=== PATIENT | male | born 1960 | race Two or more races ===

== ENCOUNTER 2022-09-01 10:02 | Emergency (ER) | payer MEDICAID, OTHER ==
[~2022-09-01] VITALS: Ht 170.2 cm; Wt 81.8 kg
[2022-09-01] MEDS ORDERED: cefTRIAXone SOD 1,000 MG VL IM ONE (11:30)
[2022-09-01] MEDS ORDERED: AZIT500T66 PO (11:49)
[2022-09-01] MEDS ORDERED: PROM1SOL4 PO (11:49)
[2022-09-01] MEDS ORDERED: ALBU108A5 IN (11:49)
[2022-09-01 12:02] VITALS: BP 124/75
== END 2022-09-01 12:05 | disposition home or self-care (01) ==
LOC: ER 10:02
DX: J02.9 Acute pharyngitis, unspecified (principal); J20.9 Acute bronchitis, unspecified
CPT/HCPCS: 71046; 96372; 99283; J0696

== ENCOUNTER 2023-06-04 08:03 | Inpatient (IN) | payer MEDICAID ==
[~2023-06-04] VITALS: Ht 167.6 cm; Wt 79.2 kg
[~2023-06-04 08:03] MED LIST: ALBU108A5 IN; AZIT500T66 PO; PROM1SOL4 PO
[2023-06-04 08:33] LABS: Basophils # (auto) 0.1 10 ^3/uL (0-0.2); Basophils % (auto) 0.7 % (0.0-2.0); Eosinophils # (auto) 0.2 10 ^3/uL (0-0.8); Eosinophils % (auto) 1.4 % (0.0-7.0); Hematocrit 47.1 % (41.0-53.0); Hemoglobin 15.6 g/dL (13.5-17.5); Lymphocytes # (auto) 2.6 10 ^3/uL (0.4-5.4); Lymphocytes % (auto) 23.2 % (10.0-50.0); Mean Corpuscular Hgb Conc. 33.2 g/dL (32.0-36.0); Mean Corpuscular Volume 90.4 fL (80.0-100.0); Monocytes # (auto) 1.4 10 ^3/uL (0-1.3); Monocytes % (auto) 12.4 % (0.0-12.0); Neutrophils # (auto) 6.9 10 ^3/uL (1.6-8.6); Neutrophils % (auto) 62.3 % (37.0-80.0); Nucleated Red Blood Cells % 0.1 %; Red Blood Cells 5.21 10^6/uL (4.5-5.90); White Blood Cell 11.1 10^3/uL (4.4-10.8)
[2023-06-04 08:44] LABS: INR 1.09 (0.9-1.15); Partial Thromboplastin Time 25.9 SEC (24.5-34.5); Prothrombin Time 11.4 sec (9.3-11.8)
[2023-06-04] MEDS ORDERED: FUROSEMIDE 40 MG/4 ML VIAL IV ONE (08:45)
[2023-06-04 08:50] LABS: Alanine Aminotransferase 15 U/L (7-40); Albumin 4.5 g/dL (3.2-4.8); Alkaline Phosphatase 114 U/L (46-116); Anion Gap 7 (5-15); Aspartate Aminotransferase 22 U/L (13-40); BUN/Creatinine Ratio 11.8 (10.0-20.0); Blood Urea Nitrogen 11 mg/dL (9-23); Calcium 9.8 mg/dL (8.5-10.1); Carbon Dioxide 27 mmol/L (20-30); Chloride 101 mmol/L (98-107); Glucose 88 mg/dL (74-106); Potassium 4.1 mmol/L (3.5-5.1); Sodium 135 mmol/L (136-145)
[2023-06-04 08:51] LABS: Bilirubin, Total 1.2 mg/dL (0.2-1.0); Total Protein 7.6 g/dL (5.7-8.2)
[2023-06-04 10:00] VITALS: PULSE 87; RESP 15; O2SAT 96
[2023-06-04] MEDS ORDERED: NITROGLYCERIN 0.4 MG SL TAB SL PRN (11:45)
[2023-06-04] MEDS ORDERED: MORPHINE SULFATE INJ 2 MG/ml SYRG IV PRN ×2 (11:45)
[2023-06-04 13:22] LABS: Urine Bacteria NONE SEEN /hpf (None Seen); Urine Blood Negative /uL (Negative); Urine Clarity Clear (Clear); Urine Color Colorless (Yellow); Urine Protein, UAD Negative (Negative); Urine Specific Gravity 1.004 (1.001-1.035); Urine Urobilinogen Normal (Negative); Urine WBC <1 /hpf (0 - 3)
[2023-06-04 14:27] LABS: COVID19 ANTIGEN SOFIA FIA NEGATIVE (NEGATIVE); Rapid Influenza A Negative (Negative); Rapid Influenza B Negative (Negative)
[2023-06-04 15:14] LABS: Body Fluid pH 3
[2023-06-04] MEDS: HYDROcodone-ACET 5/325MG TAB PO PRN (19:05)
[2023-06-04] MEDS: ONDANSETRON HCL 4 MG/2 ML VIAL IV PRN (20:39)
[2023-06-04 22:28] LABS: Body Fluid Red Blood Cells 645000 CUMM (0-2000); Body Fluid White Blood Cells 12500 CUMM (0-200)
[2023-06-04 22:29] LABS: Body Fluid Polymorphonuclear 16 % (0-25)
[2023-06-04 23:59] VITALS: PULSE 98; RESP 22; O2SAT 95
[2023-06-05] MEDS: ONDANSETRON HCL 4 MG/2 ML VIAL IV PRN (04:53)
[2023-06-05 08:24] VITALS: PULSE 94; RESP 16; O2SAT 100
[2023-06-05] MEDS: HYDROcodone-ACET 5/325MG TAB PO PRN (08:30)
[2023-06-05] MEDS ORDERED: FAMOTIDINE 20 MG TAB PO SCH (10:00)
[2023-06-05 12:07] LABS: Albumin, Body Fluid 3.5 g/dL (Not Estab.); Protein, Body Fluid 5.5 g/dL (.)
[2023-06-05 13:03] VITALS: TEMP 98.7
[2023-06-05] MEDS ORDERED: TAMS-35 PO (14:59)
[2023-06-05 15:40] VITALS: BP 116/82; PULSE 78; RESP 16; O2SAT 100
[2023-06-22] MEDS ORDERED: IBUP1TAB5 PO (14:42)
[2023-06-22] MEDS ORDERED: ROSU10TA16 PO (14:42)
== END 2023-06-05 15:50 | disposition home or self-care (01) | DRG 136 ==
LOC: ER 08:03 → TELE 11:51
PROVIDERS: ADMIT Hospitalist; ATTEND Hospitalist
PROC: 0W993ZZ Drainage of Right Pleural Cavity, Percutaneous Approach (ICD-10-PCS; principal; 2023-06-04)
DX: C34.90 Malignant neoplasm of unspecified part of unspecified bronchus or lung (principal); J90 Pleural effusion, not elsewhere classified; N13.8 Other obstructive and reflux uropathy; E78.5 Hyperlipidemia, unspecified; I10 Essential (primary) hypertension; N40.1 Benign prostatic hyperplasia with lower urinary tract symptoms; Z85.46 Personal history of malignant neoplasm of prostate
CPT/HCPCS: 36415; 71045; 71260; 76604; 76775; 76942; 80053; 81001; 83615; 83880; 83986; 84484; 85025; 85610; 85730; 87070; 87205; 87426; 87804; 89051; 93005; 93306; 96374; 99291; G0378; J2405

== ENCOUNTER 2023-07-05 20:45 | Inpatient (IN) | payer MEDICAID ==
[~2023-07-05] VITALS: Ht 170.2 cm; Wt 83.2 kg
[~2023-07-05 20:45] MED LIST changes: -AZIT500T66 PO; +ROSU10TA16 PO; +TAMS-35 PO
[2023-07-05 22:00] LABS: Basophils # (auto) 0.1 10 ^3/uL (0-0.2); Basophils % (auto) 0.6 % (0.0-2.0); Eosinophils # (auto) 0.1 10 ^3/uL (0-0.8); Hematocrit 39.2 % (41.0-53.0); Hemoglobin 13.1 g/dL (13.5-17.5); Lymphocytes % (auto) 11.7 % (10.0-50.0); Mean Corpuscular Hemoglobin 29.8 pg (28.0-32.0); Mean Corpuscular Hgb Conc. 33.5 g/dL (32.0-36.0); Mean Corpuscular Volume 88.9 fL (80.0-100.0); Monocytes # (auto) 1.1 10 ^3/uL (0-1.3); Monocytes % (auto) 12.3 % (0.0-12.0); Neutrophils # (auto) 6.6 10 ^3/uL (1.6-8.6); Neutrophils % (auto) 74.4 % (37.0-80.0); Red Cell Distribution Width 13.6 % (11.8-14.3); White Blood Cell 8.9 10^3/uL (4.4-10.8)
[2023-07-05 22:09] LABS: Alanine Aminotransferase 16 U/L (7-40); Alkaline Phosphatase 117 U/L (46-116); Anion Gap 8 (5-15); Aspartate Aminotransferase 14 U/L (13-40); BUN/Creatinine Ratio 9.1 (10.0-20.0); Blood Urea Nitrogen 8 mg/dL (9-23); Calcium 9.4 mg/dL (8.5-10.1); Carbon Dioxide 27 mmol/L (20-30); Chloride 100 mmol/L (98-107); Glucose 113 mg/dL (74-106); Potassium 4.1 mmol/L (3.5-5.1); Sodium 135 mmol/L (136-145)
[2023-07-05 22:10] LABS: Bilirubin, Total 0.5 mg/dL (0.2-1.0)
[2023-07-06 04:30] VITALS: PULSE 91; RESP 18; O2SAT 98
[2023-07-06 07:33] LABS: Urine Bacteria NONE SEEN /hpf (None Seen); Urine Blood Negative /uL (Negative); Urine Clarity Clear (Clear); Urine Color Yellow (Yellow); Urine Mucus FEW (None Seen); Urine Protein, UAD TRACE (Negative); Urine Specific Gravity 1.017 (1.001-1.035); Urine Urobilinogen Normal (Negative); Urine WBC 1 /hpf (0 - 3)
[2023-07-06 08:00] VITALS: PULSE 94; RESP 22; TEMP 98.2; O2SAT 93
[2023-07-06] MEDS ORDERED: MORPHINE SULFATE INJ 2 MG/ml SYRG IV PRN ×2 (09:15)
[2023-07-06] MEDS ORDERED: NITROGLYCERIN 0.4 MG SL TAB SL PRN (09:15)
[2023-07-06] MEDS ORDERED: ONDANSETRON HCL 4 MG/2 ML VIAL IV PRN (09:15)
[2023-07-06] MEDS ORDERED: HYDROcodone-ACET 5/325MG TAB PO PRN (09:15)
[2023-07-06] MEDS ORDERED: ALBUTEROL SULF 2.5 MG/0.5ML(0.5%) NEB SOLN NEB SCH (10:00)
[2023-07-06 10:17] LABS: INR 1.12 (0.9-1.15); Partial Thromboplastin Time 28.8 SEC (24.5-34.5); Prothrombin Time 11.7 sec (9.3-11.8)
[2023-07-06 11:03] VITALS: BP 108/65; PULSE 116; RESP 22; O2SAT 92
== END 2023-07-06 11:53 | disposition home or self-care (01) | DRG 136 ==
LOC: ER 20:45 → OVERFLOW 07-06 09:15
PROVIDERS: ADMIT Hospitalist; ATTEND Hospitalist
PROC: 0W9B3ZZ Drainage of Left Pleural Cavity, Percutaneous Approach (ICD-10-PCS; principal; 2023-07-06)
DX: C34.92 Malignant neoplasm of unspecified part of left bronchus or lung (principal); J96.20 Acute and chronic respiratory failure, unspecified whether with hypoxia or hypercapnia; J91.0 Malignant pleural effusion; Z82.49 Family history of ischemic heart disease and other diseases of the circulatory system; Z85.118 Personal history of other malignant neoplasm of bronchus and lung
CPT/HCPCS: 36415; 71045; 80053; 81001; 83880; 84484; 85025; 85610; 85730; 93005; G0378

== ENCOUNTER 2024-08-02 12:15 | Inpatient (IN) | payer MEDICAID ==
[~2024-08-02] VITALS: Ht 170.2 cm; Wt 63.8 kg
[~2024-08-02 12:15] MED LIST changes: +MORP30TA PO; +TAMS0.4C39 PO
--- NOTE | 2024-08-02 12:37 | ECG ---
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
--- NOTE | 2024-08-02 13:22 | ED.PDOC ---
GI ASSESSMENT HPI Comments 64y M who presents to the ED for chief complaint of abdominal pain. Pt states he has been having R sided abdominal pain for the past few days. Pt states the pain is constant, achy in nature, with pain radiating diffusely located, with no associated exacerbating or relieving factors.Pt states he also also been constipated for the past 3 weeks and last BM 3 weeks prior. Pt noted to be taking norco for pain. Pt otherwise able to pass gas at this time. Pt denies any other symptoms at this time. Chief Complaint: Abdominal Pain Time Seen by MD: 13:19 Primary Care Provider: LARRY Del Real Notes: Medications Allergies: Coded Allergies: NO KNOWN ALLERGIES (Unverified , 09/01/22) Home Meds Active Scripts Tamsulosin Hcl (Flomax) 0.4 Mg Cap, 1 CAP PO QPM, #30 CAP Prov:JALYN SARGENT MD 06/05/23 Albuterol Sulfate (Albuterol Sulfate Hfa) 108 Mcg/Act Aer, 108 MCG IN TID, #90 AER Prov:KENYA GARCES 09/01/22 Promethazine-Dm (Promethazine Dm 6.25-15 mg/5Ml) 1 Cyndi Cyndi, 5 ML PO TID, #150 ML Prov:KENYA GARCES 09/01/22 Reported Medications Tamsulosin Hcl (Tamsulosin Hcl) 0.4 Mg Cap, 1 CAP PO DAILY, #30 CAP 5 Refills 07/13/23 Rosuvastatin Calcium (Crestor) 10 Mg Tab, 1 TAB PO DAILY, #30 TAB 5 Refills 07/13/23 Morphine Sulfate (Morphine Sulfate) 30 Mg Tab, 1 TAB PO QID, #120 TAB 07/13/23 Rosuvastatin Calcium (Crestor) 10 Mg Tab, 1 TAB PO DAILY, #90 TAB 3 Refills 06/22/23 Information Source: Patient, Spouse Mode of Arrival: Ambulatory Brought in by: spouse Timing: Weeks Past Medical History PAST MEDICAL HISTORY: Cancer, High Lipids Surgical History: Hernia Repair Family History Family History: Reviewed,noncontributory to illness Social History Smoker: Non-Smoker Alcohol: Denies ETOH Use Drugs: Denies Drug Use Lives In: Home Constitutional: denies: chills, diaphoresis, fatigue, fever, malaise, sweats, weakness, others EENTM: denies: blurred vision, double vision, ear bleeding, ear discharge, ear drainage, ear pain, ear ringing, eye pain, eye redness, hearing loss, mouth pain, mouth swelling, nasal discharge, nose bleeding, nose congestion, nose pain, photophobia, tearing, throat pain, throat swelling, voice changes, others Respiratory: denies: cough, hemoptysis, orthopnea, SOB at rest, shortness of breath, SOB with excertion, stridor, wheezing, others Cardiovascular: denies: chest pain, dizzy spells, diaphoresis, Dyspnea on exertion, edema, irregular heart beat, left arm pain, lightheadedness, palpitations, PND, syncope, others Gastrointestinal: reports: abdominal pain, constipated; denies: abdomen distended, blood streaked bowels, diarrhea, dysphagia, difficulty swallowing, hematemesis, melena, nausea, poor appetite, poor fluid intake, rectal bleeding, rectal pain, vomiting, others Genitourinary: denies: burning, dysuria, flank pain, frequency, hematuria, incontinence, penile discharge, penile sore, pain, testicle pain, testicle swelling, urgency, others Neurological: denies: dizziness, fainting, headache, left sided numbness, left sided weakness, numbness, paresthesia, pre-existing deficit, right sided numbness, right sided weakness, seizure, speech problems, tingling, tremors, weakness, others Musculoskeletal: denies: back pain, gout, joint pain, joint swelling, muscle pain, muscle stiffness, neck pain, others Integumetry: denies: bruises, change in color, change in hair/nails, dryness, laceration, lesions, lumps, rash, wounds, others Allergic/Immunocompromised: denies: Difficulty Healing, Frequent Infections, Hives, Itching, others Hematologic/Lymphatic: denies: anemia, blood clots, easy bleeding, easy bruising, swollen glands, others Endocrine: denies: excessive hunger, excessive sweating, excessive thirst, excessive urination, flushing, intolerance to cold, intolerance to heat, unexplained weight gain, unexplained weight loss, others Psychiatric: denies: anxiety, bipolar disorder, depression, hopeless, panic disorder, schizophrenia, sleepless, suicidal, others All Other Systems: Reviewed and Negative Physical Exam General Appearance: Moderate Distress, Thin HEENT: Normal ENT Inspection, Pharynx Normal, TMs Normal Neck: Full Range of Motion, Non-Tender, Normal, Normal Inspection Respiratory: Decreased Breath Sounds, Respiratory Distress Cardiovascular: No Edema, No JVD, No Murmur, No Gallop, Normal Peripheral Pulses, Regular Rate/Rhythm Breast Exam: Deferred Gastrointestinal: Soft, Tenderness Genitalia: Deferred Pelvic: Deferred Rectal: Deferred Extremities: No calf tenderness, Normal capillary refill, Normal inspection, Normal range of motion, Non-tender, No pedal edema Musculoskeletal : Apperance: Normal Neurologic: Alert, shroud line tier II-XII nml as Tested, No Motor Deficits, Normal Affect, Normal Mood, No Sensory Deficits Cerebellar Function: Normal Reflexes: Normal Skin: Dry, Normal Color, Warm Lymphatic: No Adenopathy Was a procedure done? Was a procedure done?: No GI differential Dx Differential Diagnosis: Bowel Obstruction, Constipation, Diverticular disease, Hernia, Inflammatory BD, Pancreatitis, Dehydration, Stress Ulcer, Kidney Stone X-Ray, Labs, Meds, VS Vital Signs Date Time Temp Pulse Resp B/P (MAP) Pulse Ox O2 Delivery O2 Flow Rate FiO2 08/02/24 15:46 94 14 146/91 08/02/24 15:16 102 17 148/84 08/02/24 14:45 94 14 146/91 (109) 98 08/02/24 13:51 98.7 103 18 135/87 (103) 98 98.7 08/02/24 12:33 114 08/02/24 12:30 98.3 116 40 150/99 (116) 95 Lab Test 08/02/24 13:18 Range/Units White Blood Count 6.7 4.4-10.8 10^3/uL Red Blood Count 4.70 4.5-5.90 10^6/uL Hemoglobin 14.0 13.5-17.5 g/dL Hematocrit 41.2 41.0-53.0 % Mean Corpuscular Volume 87.6 80.0-100.0 fL Mean Corpuscular Hemoglobin 29.8 28.0-32.0 pg Mean Corpuscular Hemoglobin Concent 34.0 32.0-36.0 g/dL Red Cell Distribution Width 15.2 H 11.8-14.3 % Platelet Count 307 140-450 10^3/uL Mean Platelet Volume 6.3 L 6.9-10.8 fL Neutrophils (%) (Auto) 68.1 37.0-80.0 % Lymphocytes (%) (Auto) 15.1 10.0-50.0 % Monocytes (%) (Auto) 15.0 H 0.0-12.0 % Eosinophils (%) (Auto) 0.9 0.0-7.0 % Basophils (%) (Auto) 0.9 0.0-2.0 % Neutrophils # (Auto) 4.6 1.6-8.6 10 ^3/uL Lymphocytes # (Auto) 1.0 0.4-5.4 10 ^3/uL Monocytes # (Auto) 1.0 0-1.3 10 ^3/uL Eosinophils # (Auto) 0.1 0-0.8 10 ^3/uL Basophils # (Auto) 0.1 0-0.2 10 ^3/uL Nucleated Red Blood Cells 0.0 % Prothrombin Time 11.6 9.3-11.8 sec Prothrombin Time INR 1.11 0.9-1.15 Activated Partial Thromboplast Time 26.1 24.5-34.5 SEC Sodium Level 132 L 136-145 mmol/L Potassium Level 4.5 3.5-5.1 mmol/L Chloride Level 99 98-107 mmol/L Carbon Dioxide Level 28 20-31 mmol/L Anion Gap 5 5-15 Blood Urea Nitrogen 6 L 9-23 mg/dL Creatinine 1.09 0.700-1.30 mg/dL Glomerular Filtration Rate Calc 76 >90 mL/min BUN/Creatinine Ratio 5.5 L 10.0-20.0 Serum Glucose 94 74-106 mg/dL Calcium Level 9.1 8.7-10.4 mg/dL Total Bilirubin 0.7 0.2-1.0 mg/dL Aspartate Amino Transferase (AST) 24 13-40 U/L Alanine Aminotransferase (ALT) 17 7-40 U/L Alkaline Phosphatase 109 46-116 U/L Total Protein 7.6 5.7-8.2 g/dL Albumin 4.1 3.2-4.8 g/dL Lipase 45 12-53 U/L Current Medications Medications (Trade) Dose Ordered Sig/Leia Route Start Time Stop Time Status Last Admin Ondansetron HCl (Zofran) 4 mg ONCE ONCE IV 08/02/24 12:45 08/02/24 12:46 DC 08/02/24 15:17 Sodium Chloride 1,000 ml @ 1,000 mls/hr Q1H ONCE IVB 08/02/24 12:45 08/02/24 13:44 DC 08/02/24 15:17 Morphine Sulfate 4 mg ONCE ONCE IV 08/02/24 12:45 08/02/24 12:46 DC 08/02/24 15:16 [place] [id number] Ph: [phone] DIAGNOSTIC IMAGING Diagnostic Imaging Report : [id number] Signed PATIENT: NICK NICHOLSON ACCT: [id number] UNIT: [id number] : 1960 LOC: ER ROOM / BED: / AGE / SEX: 64 / M ADM STATUS: REG ER SERVICE 1238 ORDERING PHYSICIAN: RANJANA DAVID MD PROCEDURE(s): CAPIV - CT CHEST/AB/PL W CON- IV ONLY REASON: abd pain, lung cancer, SOB ORDER NUMBER(s): [id number], ACCESSION NUMBER(s): [id number] Exam: CT CT CHEST/AB/PL W CON- IV ONLY History: abd pain, lung cancer, SOB Comparison Study: PET-CT 07/18/[address] abdomen and pelvis 06/24/2020 TECHNIQUE: Multidetector CT of the chest abdomen and pelvis with contrast. Axial, coronal and sagittal multiplanar reformats were obtained from the axial data set by the technologist. Radiation Dose Information: CT Dose: CTDI volume is 8.03 mGy. Dose-length product is 566.66 mGy*cm FINDINGS: Chest: The thyroid gland is unremarkable. Volume loss of the left lung with pleural thickening and atelectasis of the left lower lobe with partial atelectasis of the left upper lobe. There is moderate left-sided pleural effusion with thickened pleural wall most consistent with an empyema. No pneumothorax. Trace right-sided pleural effusion with no focal right lung consolidation. Heart size is within normal limits with mediastinal shift to the left. No significant mediastinal lymphadenopathy. A right-sided approach Port-A-Cath is noted terminating over the superior cavoatrial junction. There is left-sided prominent axillary lymph nodes measuring up to 2 cm. Abdomen and pelvis: Liver, spleen, gallbladder, pancreas and adrenal glands unremarkable. Mild asymmetric decreased enhancement of the right kidney with no obstructing calculus noted . There appears to be soft tissue density over the right renal pelvis and proximal ureter with mild right hydronephrosis . Subcentimeter hypodense bilateral renal lesions that are too small to characterize. 3.5 cm left renal interpolar region cyst. No renal calculi bilaterally. Urinary bladder is unremarkable. Prostate is enlarged measuring 4.5 x 5.4 by 5.9 cm. Mild gastric wall thickening mild wall thickening of proximal duodenum. 2.2 x 7.2 by 2.6 cm soft tissue density area within the right midabdomen which may be associated with small bowel loop or may represent a mesenteric mass. Remainder of the small bowel loops are unremarkable. Appendix is not definitely visualized. Mild wall thickening of the ascending colon small to moderate amount of fecal material within the colon. Mild ascites. No evidence of intraperitoneal free air. No evidence of aortic aneurysm or dissection. Significant mesenteric lymph node. Soft tissues are unremarkable. Multiple blastic osseous metastasis are noted. IMPRESSION: Volume loss of the left lung with pleural thickening in partial atelectasis of the left lobe. Underlying pneumonia/ mass can not be excluded. Moderate left-sided empyema. Mediastinal lymphadenopathy which may be neoplastic/reactive. Left axillary prominent lymph nodes which may be neoplastic. Mild wall thickening of the stomach and duodenum. Correlate for gastro duodenitis. Mild wall thickening of the ascending colon. Correlate for colitis /neoplasm. Mild ascites. Soft tissue density lesion within the right midabdomen which may be associated with the small bowel or may represent a mesenteric mass. Mild right hydronephrosis with soft tissue density of the right renal pelvis and proximal ureter. Correlate for possible mass. Multiple osseous lesions noted. Additional findings as above. ATED BY: MANUELA OWUSU DO DICTATED DATE/TIME: 08/02/24 1640 SIGNED BY: MANUELA OWUSU DO SIGNED DATE/TIME: 08/02/24 1640 CC: Time of 1ST Reevaluation: 13:50 Reevaluation 1ST: Unchanged Time of 2ND Reevaluation: 16:56 Reevaluation 2ND: Unchanged Patient Education/Counseling: Diagnosis, Treatment Family Education/Counseling: Diagnosis, Treatment Sepsis Sepsis Reasesment Focused Exam Sepsis focused exam: focus exam completed, time: (425) Departure 1 Departure Time of Disposition: 16:55 Impression: Primary Impression: Pleural effusion Additional Impressions: Lung cancer Empyema Constipation Disposition: 09 ADMITTED INPATIENT Condition: Guarded Discharged With: Self Critical Care Note Critical Care Time?: Yes (45 min-critical care time only) Critical care comment: Total critical care time: Approximately 36 minutes Due to a high probability of clinically significant, life threatening deterioration, the patient required my highest level of preparedness to intervene emergently and I personally spent this critical care time directly and personally managing the patient. This critical care time included obtaining a history; examining the patient; pulse oximetry; ordering and review of studies; arranging urgent treatment with development of a management plan; evaluation of patient's response to treatment; frequent reassessment; and, discussions with other providers. This critical care time was performed to assess and manage the high probability of imminent, life-threatening deterioration that could result in multi-organ failure. It was exclusive of separately billable procedures and treating other patients. Stability Stability form required: No Heart Score Heart Score: Heart Score Response (Comments) Value History N/A 0 EKG N/A 0 Age N/A 0 Risk Factors N/A 0 Troponin N/A 0 Total 0 I personally scribed for RANJANA DAVID MD ([email or web address]) on 08/02/24 at 13:22. Electronically submitted by French Borrero ([email or web address]). I personally scribed for RANJANA DAVID MD ([email or web address]) on 08/02/24 at 16:47. Electronically submitted by French KELLOGG). RANJANA DAVID MD Aug 02, 2024 13:22
[2024-08-02 13:39] LABS: Basophils # (auto) 0.1 10 ^3/uL (0-0.2); Basophils % (auto) 0.9 % (0.0-2.0); Eosinophils # (auto) 0.1 10 ^3/uL (0-0.8); Eosinophils % (auto) 0.9 % (0.0-7.0); Hematocrit 41.2 % (41.0-53.0); Lymphocytes % (auto) 15.1 % (10.0-50.0); Mean Corpuscular Hemoglobin 29.8 pg (28.0-32.0); Mean Corpuscular Volume 87.6 fL (80.0-100.0); Neutrophils # (auto) 4.6 10 ^3/uL (1.6-8.6); Neutrophils % (auto) 68.1 % (37.0-80.0); Platelet Count (auto) 307 10^3/uL (140-450); Red Cell Distribution Width 15.2 % (11.8-14.3); White Blood Cell 6.7 10^3/uL (4.4-10.8)
[2024-08-02 14:04] LABS: INR 1.11 (0.9-1.15); Partial Thromboplastin Time 26.1 SEC (24.5-34.5); Prothrombin Time 11.6 sec (9.3-11.8)
[2024-08-02 14:26] LABS: Alanine Aminotransferase 17 U/L (7-40); Albumin 4.1 g/dL (3.2-4.8); Alkaline Phosphatase 109 U/L (46-116); Anion Gap 5 (5-15); Aspartate Aminotransferase 24 U/L (13-40); BUN/Creatinine Ratio 5.5 (10.0-20.0); Bilirubin, Total 0.7 mg/dL (0.2-1.0); Calcium 9.1 mg/dL (8.7-10.4); Carbon Dioxide 28 mmol/L (20-31); Chloride 99 mmol/L (98-107); Glucose 94 mg/dL (74-106); Lipase 45 U/L (12-53); Potassium 4.5 mmol/L (3.5-5.1)
[2024-08-02 14:27] LABS: Total Protein 7.6 g/dL (5.7-8.2)
[2024-08-02 14:28] LABS: Blood Urea Nitrogen 6 mg/dL (9-23); Sodium 132 mmol/L (136-145)
[2024-08-02] MEDS: MORPHINE SULFATE 4 MG/ML SYR/VIAL IV ONE ×2 (15:16→20:22)
[2024-08-02] MEDS: SODIUM CHLORIDE 0.9% 1,000 ML IVB ONE (15:17)
[2024-08-02] MEDS: ONDANSETRON HCL 4 MG/2 ML VIAL IV ONE ×3 (15:17→22:18)
[2024-08-02] MEDS: IOHEXOL 300 MG/ML 100ML BOTTLE IJ ONE (15:24)
--- NOTE | 2024-08-02 16:42 | DVH ---
Exam: CT CT CHEST/AB/PL W CON- IV ONLY History: abd pain, lung cancer, SOB Comparison Study: PET-CT 07/18/[address] abdomen and pelvis 06/24/2020 TECHNIQUE: Multidetector CT of the chest abdomen and pelvis with contrast. Axial, coronal and sagitta l multiplanar reformats were obtained from the axial data set by the technologist. Radiation Dose Information: CT Dose: CTDI volume is 8.03 mGy. Dose-length product is 566.66 mGy*cm FINDINGS: Chest: The thyroid gland is unremarkable. Volume loss of the left lung with pleural thickening and atelectasis of the left lower lobe with part ial atelectasis of the left upper lobe. There is moderate left-sided pleural effusion with thickened pleural wall most consistent with an empyema. No pneumothorax. Trace right-sided pleural effusion with no focal right lung consolidation. Heart size is within normal limits with mediastinal shift to the left. No significant mediastinal lymphadenopathy. A right-sided approach Port-A-Cath is noted terminating over the superior cavoatrial junction. There is left-sided prominent axillary lymph nodes measuring up to 2 cm. Abdomen and pelvis: Liver, spleen, gallbladder, pancreas and adrenal glands unremarkable. Mild asymmetric decreased enhancement of the right kidney with no obstructing calculus noted . There appears to be soft tissue density over the right renal pelvis and proximal ureter with mild right hy dronephrosis . Subcentimeter hypodense bilateral renal lesions that are too small to characterize. 3. 5 cm left renal interpolar region cyst. No renal calculi bilaterally. Urinary bladder is unremarkable . Prostate is enlarged measuring 4.5 x 5.4 by 5.9 cm. Mild gastric wall thickening mild wall thickening of proximal duodenum. 2.2 x 7.2 by 2.6 cm soft tiss ue density area within the right midabdomen which may be associated with small bowel loop or may repr esent a mesenteric mass. Remainder of the small bowel loops are unremarkable. Appendix is not definitely visualized. Mild wall thickening of the ascending colon small to moderate amount of fecal material within the colon. Mild ascites. No evidence of intraperitoneal free air. No evidence of aortic aneurysm or dissection. Significant mesenteric lymph node. Soft tissues are unremarkable. Multiple blastic osseous metastasis are noted. IMPRESSION: Volume loss of the left lung with pleural thickening in partial atelectasis of the left lobe. Underly ing pneumonia/ mass can not be excluded. Moderate left-sided empyema. Mediastinal lymphadenopathy which may be neoplastic/reactive. Left axillary prominent lymph nodes which may be neoplastic. Mild wall thickening of the stomach and duodenum. Correlate for gastro duodenitis. Mild wall thickening of the ascending colon. Correlate for colitis /neoplasm. Mild ascites. Soft tissue density lesion within the right midabdomen which may be associated with the small bowel o r may represent a mesenteric mass. Mild right hydronephrosis with soft tissue density of the right renal pelvis and proximal ureter. Co rrelate for possible mass. Multiple osseous lesions noted. Additional findings as above.
[2024-08-02] MEDS: cefTRIAXone 1GM/50ML D5W 50 ML IV ONE (17:11)
[2024-08-02] MEDS: AZITHROMYCIN 500MG/ 250ML 250 ML IV ONE (18:03)
[2024-08-02 20:00] VITALS: PULSE 95; RESP 15; O2SAT 96
[2024-08-02] MEDS ORDERED: NITROGLYCERIN 0.4 MG SL TAB SL PRN (21:45)
[2024-08-02] MEDS ORDERED: HYDROcodone-ACET 5/325MG TAB PO PRN (21:45)
[2024-08-02] MEDS ORDERED: MORPHINE SULFATE INJ 2 MG/ml SYRG IV PRN (21:45)
[2024-08-02] MEDS ORDERED: ACETAMINOPHEN 325 MG TAB PO PRN (21:45)
[2024-08-02] MEDS: HYDROmorphone HCL 2 MG/ML VL/or syr IV ONE (22:04)
[2024-08-02 22:15] VITALS: PULSE 85; RESP 16; O2SAT 98
[2024-08-02] MEDS: ALBUTEROL SULF 2.5 MG/0.5ML(0.5%) NEB SOLN NEB SCH (22:24)
[2024-08-02] MEDS: IPRATROPIUM BROM 0.5 MG/2.5ML INH SOL NEB SCH (22:24)
[2024-08-02 22:26] VITALS: PULSE 87; RESP 16; O2SAT 99
[2024-08-02 22:27] VITALS: O2SAT 98
--- NOTE | 2024-08-02 22:54 | DVHINCON2 ---
Date of service: Aug 02, 2024 Referring Physician Jose G Boland NP Reason for Consultation Left pleural effusion. History of Present Illness 64-year-old man history of metastatic lung cancer presented with abdominal pain after being referred by his oncologist. He was concerns for small bowel ob struction. His last bowel movement was three weeks ago. He takes pain medications on regular basis. Chest x-ray was notable for pleural effusion. Pulmonary consultation was called for acute hypoxic respiratory failure and evaluation of pleural effusion. Review of Systems: 14-point review of systems negative unless otherwise noted above. Past Medical History: Past Surgical History: Medications: Reviewed. Allergies: No known drug allergies. Family History: No family history of premature CAD. No family history of lung disorders. Social History: Nonsmoker. No alcohol or illicit drug use. Family History: FH: genital cancer G8 FATHER High cholesterol G8 FATHER Allergies: Coded Allergies: NO KNOWN ALLERGIES (Unverified , 09/01/22) Home Meds Active Scripts Tamsulosin Hcl (Flomax) 0.4 Mg Cap, 1 CAP PO QPM, #30 CAP Prov:JALYN SARGENT MD 06/05/23 Albuterol Sulfate (Albuterol Sulfate Hfa) 108 Mcg/Act Aer, 108 MCG IN TID, #90 AER Prov:KENYA GARCES 09/01/22 Promethazine-Dm (Promethazine Dm 6.25-15 mg/5Ml) 1 Cyndi Cyndi, 5 ML PO TID, #150 ML Prov:KENYA GARCES 09/01/22 Reported Medications Tamsulosin Hcl (Tamsulosin Hcl) 0.4 Mg Cap, 1 CAP PO DAILY, #30 CAP 5 Refills 07/13/23 Rosuvastatin Calcium (Crestor) 10 Mg Tab, 1 TAB PO DAILY, #30 TAB 5 Refills 07/13/23 Morphine Sulfate (Morphine Sulfate) 30 Mg Tab, 1 TAB PO QID, #120 TAB 07/13/23 Rosuvastatin Calcium (Crestor) 10 Mg Tab, 1 TAB PO DAILY, #90 TAB 3 Refills 06/22/23 Current Medications Current Medications Medications (Trade) Dose Ordered Sig/Leia Route PRN Reason Start Time Stop Time Status Last Admin Docusate Sodium (Colace Capsule) 100 mg BIDPRN PRN PO FOR CONSTIPATION 08/02/24 21:45 Acetaminophen (Tylenol Tablet) 650 mg Q6HP PRN PO PAIN SCALE 1-3 OR TEMP>100.4 08/02/24 21:45 Acetaminophen/ Hydrocodone Bitart ([place] 5/325MG Tab) 1 tab Q4HP PRN PO MODERATE PAIN (4-6 PAIN SCALE) 08/02/24 21:45 Ondansetron HCl (Zofran) 4 mg Q4HP PRN IV NAUSEA / VOMITING 08/02/24 21:45 Morphine Sulfate 2 mg Q4HPRN PRN IV SEVERE PAIN (7-10 PAIN SCALE) 08/02/24 21:45 Nitroglycerin (Ntrostat Sublingual) 0.4 mg Q5MINP PRN SL FOR CHEST PAIN 08/02/24 21:45 Morphine Sulfate 2 mg Q30M PRN IV FOR CHEST PAIN 08/02/24 21:45 Albuterol (Ventolin Medneb) 2.5 mg Q4HR NEB 08/02/24 22:00 08/02/24 22:24 Ipratropium [place] (Atrovent Medneb) 0.5 mg Q4HR NEB 08/02/24 22:00 08/02/24 22:24 Vital Signs Vital Signs Date Time Temp Pulse Resp B/P (MAP) Pulse Ox O2 Delivery O2 Flow Rate FiO2 08/02/24 22:27 98 Nasal Cannula* 2 28 08/02/24 22:26 87 16 08/02/24 22:04 133/85 08/02/24 17:06 98.9 98.9 Physical Exam Gen.: Patient lying in bed in no apparent distress. On supplemental oxygen. Head: Normocephalic, atraumatic. Eyes: EOMI/PERRLA. Ears: Normal hearing. Normal anatomy. Neck/trachea: Trachea midline, supple. Nose: Normal external anatomy. Mouth: Moist mucous membranes. Chest: Decreased air entry bilaterally. No wheezing or rhonchi. Cardiovascular: Positive S1, positive S2. Regular rate and rhythm. Abdomen: Positive bowel sounds in all 4 quadrants. Soft, non-tender, non- distended. : Deferred. Rectal: Deferred. Skin: Warm, dry. Intact. Extremities: 2+ radial pulses bilaterally. No lower extremity edema. Neuro: Awake, alert, oriented x3. No gross motor or sensory deficits. Cranial nerves II through XII intact. Gait not assessed. Labs/Diagnostic Data Labs Test 08/02/24 17:05 08/02/24 13:18 Range/Units Lactic Acid Level 0.9 0.4-2.0 mmol/L White Blood Count 6.7 4.4-10.8 10^3/uL Red Blood Count 4.70 4.5-5.90 10^6/uL Hemoglobin 14.0 13.5-17.5 g/dL Hematocrit 41.2 41.0-53.0 % Mean Corpuscular Volume 87.6 80.0-100.0 fL Mean Corpuscular Hemoglobin 29.8 28.0-32.0 pg Mean Corpuscular Hemoglobin Concent 34.0 32.0-36.0 g/dL Red Cell Distribution Width 15.2 H 11.8-14.3 % Platelet Count 307 140-450 10^3/uL Mean Platelet Volume 6.3 L 6.9-10.8 fL Neutrophils (%) (Auto) 68.1 37.0-80.0 % Lymphocytes (%) (Auto) 15.1 10.0-50.0 % Monocytes (%) (Auto) 15.0 H 0.0-12.0 % Eosinophils (%) (Auto) 0.9 0.0-7.0 % Basophils (%) (Auto) 0.9 0.0-2.0 % Neutrophils # (Auto) 4.6 1.6-8.6 10 ^3/uL Lymphocytes # (Auto) 1.0 0.4-5.4 10 ^3/uL Monocytes # (Auto) 1.0 0-1.3 10 ^3/uL Eosinophils # (Auto) 0.1 0-0.8 10 ^3/uL Basophils # (Auto) 0.1 0-0.2 10 ^3/uL Nucleated Red Blood Cells 0.0 % Prothrombin Time 11.6 9.3-11.8 sec Prothrombin Time INR 1.11 0.9-1.15 Activated Partial Thromboplast Time 26.1 24.5-34.5 SEC Sodium Level 132 L 136-145 mmol/L Potassium Level 4.5 3.5-5.1 mmol/L Chloride Level 99 98-107 mmol/L Carbon Dioxide Level 28 20-31 mmol/L Anion Gap 5 5-15 Blood Urea Nitrogen 6 L 9-23 mg/dL Creatinine 1.09 0.700-1.30 mg/dL Glomerular Filtration Rate Calc 76 >90 mL/min BUN/Creatinine Ratio 5.5 L 10.0-20.0 Serum Glucose 94 74-106 mg/dL Calcium Level 9.1 8.7-10.4 mg/dL Total Bilirubin 0.7 0.2-1.0 mg/dL Aspartate Amino Transferase (AST) 24 13-40 U/L Alanine Aminotransferase (ALT) 17 7-40 U/L Alkaline Phosphatase 109 46-116 U/L Total Protein 7.6 5.7-8.2 g/dL Albumin 4.1 3.2-4.8 g/dL Lipase 45 12-53 U/L Assessment Impression: Acute hypoxic respiratory failure Dependence on supplemental oxygen Pleural effusion Atelectasis Small-bowel obstruction COPD Plan: Awaiting chest ultrasound results. Supplemental oxygen Titrate to keep O2 sats above 92%. Taper O2 as tolerated. Continue bronchodilators. Continue antibiotics Incentive spirometry Continue diuresis Diurese to euvolemia Monitor renal function. Monitor electrolytes. Supplement as necessary. Monitor ins and outs. DVT prophylaxis. Prognosis: Poor given patient's multiple co-morbidities. Rest of plan per hospitalist and other consultants. Thank you, DANA Boland, for allowing me to participate in this patient's care. Further recommendations will depend on the patient's clinical course. Please do not hesitate to contact me if you have any questions or concerns. This medical document was created using an electronic medical record system with [employer] dictation system. Although these documentations are being carefully reviewed, there may still be some phonetic and typographical changes. The errors are purely typographical, due to imperfection on the software program, and do not reflect any compromise in the patient's medical care. Plan discussed with: Patient, Other (RN, [employer]) BETO BIGGS MD Aug 02, 2024 22:54
[2024-08-02 23:42] VITALS: BP 135/94; PULSE 96; RESP 18; O2SAT 98
[2024-08-03] VITALS (16 sets, daily range): BP systolic 133–147; BP diastolic 97–98; PULSE 93–119; RESP 14–24; TEMP 98.3–98.5; O2SAT 95–100
[2024-08-03] MEDS: MORPHINE SULFATE INJ 2 MG/ml SYRG IV PRN (00:27)
[2024-08-03 01:03] LABS: Urine Bacteria None Seen /hpf (None Seen)
[2024-08-03 01:17] LABS: Urine Blood Negative /uL (Negative); Urine Clarity Clear (Clear); Urine Color Light-Yellow (Yellow); Urine Protein, UAD Negative (Negative); Urine Specific Gravity 1.024 (1.001-1.035); Urine Squamous Epithelial Cell None Seen /hpf (<5); Urine Urobilinogen Normal (Negative); Urine WBC 1 /HPF (0-3)
[2024-08-03] MEDS: ONDANSETRON HCL 4 MG/2 ML VIAL IV PRN (02:55)
[2024-08-03] MEDS: MORPHINE SULFATE 4 MG/ML SYR/VIAL IV PRN (02:55)
--- NOTE | 2024-08-03 03:39 | DVHHP2 ---
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 Patient states last time he had a bowel movement was three weeks ago.. Does take Ancram On a regular basis. At this time patient denies any fevers, chills, Worsening shortness of breath, chest pain, palpitations, nausea, vomiting, hematemesis, hematochezia, melena. Pulmonary: COPD Heme/Onc: Cancer Smoke: No ALCOHOL: none Drugs: None Lives: with Family Review of Systems Constitutional: No: Fever, Chills, Sweats, Weakness, Malaise, Other Eyes: No: Pain, Vision change, Conjunctivae inflammation, Eyelid inflammation, Other, Redness ENT: No: Ear pain, Ear discharge, Nose pain, Nose discharge, Nose congestion, Mouth pain, Mouth swelling, Throat pain, Throat swelling, Other Respiratory: Shortness of breath; No: Cough, Dry, SOB with excertion, Wheezing, Hemoptysis, Pleuritic Pain, Sputum, Wheezing, Other Cardiovascular: No: Chest Pain, Palpitations, Orthopnea, Paroxysmal Noc. Dyspnea, Edema, Lt Headedness, Other Gastrointestinal: Abdominal Pain; No: Nausea, Vomiting, Diarrhea, Constipation, Melena, Hematochezia, Other Genitourinary: No Dysuria, No Frequency, No Incontinence, No Hematuria, No Retention, No Other Musculoskeletal: No: other, neck pain, shoulder pain, arm pain, back pain, hand pain, leg pain, foot pain Skin: No: Rash, Lesions, Jaundice, Bruising, Other Neurological: No: Weakness, Numbness, Incoordination, Change in speech, Confusion, Seizures, Other Allergies: Coded Allergies: NO KNOWN ALLERGIES (Unverified , 09/01/22) Medications Current Medications Medications Dose Ordered Sig/Leia Route Start Time Stop Time Status Last Admin Dose Admin Docusate Sodium 100 mg BIDPRN PRN PO 08/02/24 21:45 Acetaminophen 650 mg Q6HP PRN PO 08/02/24 21:45 Acetaminophen/ Hydrocodone Bitart 1 tab Q4HP PRN PO 08/02/24 21:45 Ondansetron HCl 4 mg Q4HP PRN IV 08/02/24 21:45 08/03/24 02:55 4 MG Nitroglycerin 0.4 mg Q5MINP PRN SL 08/02/24 21:45 Morphine Sulfate 2 mg Q30M PRN IV 08/02/24 21:45 Albuterol 2.5 mg Q4HR NEB 08/02/24 22:00 08/03/24 02:03 2.5 MG Ipratropium [place] 0.5 mg Q4HR NEB 08/02/24 22:00 08/03/24 02:03 0.5 MG Morphine Sulfate 4 mg Q4HPRN PRN IV 08/03/24 02:15 08/03/24 02:55 4 MG Piperacillin Sod/ Tazobactam Sod 100 ml @ 25 mls/hr Q8HR IV 08/03/24 06:00 UNV Exam Vital Signs Vital Signs Date Time Temp Pulse Resp B/P (MAP) Pulse Ox O2 Delivery O2 Flow Rate FiO2 08/03/24 02:55 107 17 141/102 08/03/24 02:16 98 08/02/24 23:42 2.0 08/02/24 22:27 Nasal Cannula* 28 08/02/24 19:56 98.0 98.0 General Appearance: Alert, Oriented X3, Cooperative, moderate distress HEENT: Atraumatic, PERRLA Respiratory: Other (Diminished air exchange) Cardiovascular: Regular rate, Normal S1, Normal S2 Abdominal: Soft, Other (Diffuse tenderness, Diminished bowel sounds) Extremities: No clubbing, No cyanosis, No edema Skin: No breakdown Neuro: Normal speech, Strength at 5/5 X4 ext Psych/Mental Status: Mental status NL, Mood NL Labs/Xrays Labs Test 08/02/24 22:50 08/02/24 17:05 08/02/24 13:18 Range/Units Urine Color Light-yellow Yellow Urine Clarity Clear Clear Urine pH 7.0 5.0-9.0 Urine Specific [place] 1.024 1.001-1.035 Urine Protein Negative Negative Urine Ketones 1+ H Negative Urine Blood Negative Negative /uL Urine Nitrite Negative Negative Urine Bilirubin Negative Negative Urine Urobilinogen Normal Negative mg/dL Urine Leukocyte Esterase Negative Negative /uL Urine RBC 1 0 - 3 /hpf Urine Microscopic WBC 1 0-3 /HPF Urine Squamous Epithelial Cells None seen <5 /hpf Urine Bacteria None seen None Seen /hpf Urine Glucose Normal Normal mg/dL Lactic Acid Level 0.9 0.4-2.0 mmol/L White Blood Count 6.7 4.4-10.8 10^3/uL Red Blood Count 4.70 4.5-5.90 10^6/uL Hemoglobin 14.0 13.5-17.5 g/dL Hematocrit 41.2 41.0-53.0 % Mean Corpuscular Volume 87.6 80.0-100.0 fL Mean Corpuscular Hemoglobin 29.8 28.0-32.0 pg Mean Corpuscular Hemoglobin Concent 34.0 32.0-36.0 g/dL Red Cell Distribution Width 15.2 H 11.8-14.3 % Platelet Count 307 140-450 10^3/uL Mean Platelet Volume 6.3 L 6.9-10.8 fL Neutrophils (%) (Auto) 68.1 37.0-80.0 % Lymphocytes (%) (Auto) 15.1 10.0-50.0 % Monocytes (%) (Auto) 15.0 H 0.0-12.0 % Eosinophils (%) (Auto) 0.9 0.0-7.0 % Basophils (%) (Auto) 0.9 0.0-2.0 % Neutrophils # (Auto) 4.6 1.6-8.6 10 ^3/uL Lymphocytes # (Auto) 1.0 0.4-5.4 10 ^3/uL Monocytes # (Auto) 1.0 0-1.3 10 ^3/uL Eosinophils # (Auto) 0.1 0-0.8 10 ^3/uL Basophils # (Auto) 0.1 0-0.2 10 ^3/uL Nucleated Red Blood Cells 0.0 % Prothrombin Time 11.6 9.3-11.8 sec Prothrombin Time INR 1.11 0.9-1.15 Activated Partial Thromboplast Time 26.1 24.5-34.5 SEC Sodium Level 132 L 136-145 mmol/L Potassium Level 4.5 3.5-5.1 mmol/L Chloride Level 99 98-107 mmol/L Carbon Dioxide Level 28 20-31 mmol/L Anion Gap 5 5-15 Blood Urea Nitrogen 6 L 9-23 mg/dL Creatinine 1.09 0.700-1.30 mg/dL Glomerular Filtration Rate Calc 76 >90 mL/min BUN/Creatinine Ratio 5.5 L 10.0-20.0 Serum Glucose 94 74-106 mg/dL Calcium Level 9.1 8.7-10.4 mg/dL Total Bilirubin 0.7 0.2-1.0 mg/dL Aspartate Amino Transferase (AST) 24 13-40 U/L Alanine Aminotransferase (ALT) 17 7-40 U/L Alkaline Phosphatase 109 46-116 U/L Total Protein 7.6 5.7-8.2 g/dL Albumin 4.1 3.2-4.8 g/dL Lipase 45 12-53 U/L Assessment/Plan Assessment/Plan Left lobe Empyema vs recurrent pleural effusion Gastro-duodenitis vs SBO History of lung cancer with metastatic disease Plan Admit telemetry Consult pulmonology. Bronchodilators. As needed supplemental O2 to maintain O2 saturation greater Than 93%. RT monitoring. Consider thoracentesis. General surgeon consulted. NPO diet. Gastroenterology consult IVF IV ABX Oncology consult for continued care Social service consult for palliative care As needed analgesia GI ppx protonix / DVT ppx lovenox Plan discussed with: Patient, Daughter My Orders Orders - STEVE GARCIA NP Procedure Category Date Status Time Admit ADMIT 08/02/24 Transmitted 21:34 Code Status CODE 08/02/24 Transmitted 21:34 Vital Signs FLORI 08/02/24 In Process 21:34 Review Orders With FLORI 08/02/24 In Process Adm. 21:34 Encourage Activity As FLORI 08/02/24 In Process Tolerate 21:34 Oxygen By Face Mask RT 08/02/24 Transmitted 21:34 Docusate Sodium PHA 08/02/24 In Process Capsule (Colace 21:45 Acetaminophen Tablet PHA 08/02/24 In Process (Tylenol Tablet) 21:45 Notify Of Changes FLORI 08/02/24 In Process From Base 21:34 Advance Directive FLORI 08/02/24 In Process 21:34 Basic Metabolic Panel LAB 08/03/24 Logged 05:00 Basic Metabolic Panel LAB 08/04/24 Verified 05:00 Basic Metabolic Panel LAB 08/05/24 Verified 05:00 Basic Metabolic Panel LAB 08/06/24 Verified 05:00 Complete Blood Count LAB 08/03/24 Logged 05:00 Complete Blood Count LAB 08/04/24 Verified 05:00 Complete Blood Count LAB 08/05/24 Verified 05:00 Complete Blood Count LAB 08/06/24 Verified 05:00 Complete Blood Count LAB 08/07/24 Verified 05:00 Patient Condition ORDERS 08/02/24 Transmitted 21:34 Allergies FLORI 08/02/24 In Process 21:34 Hydrocodone-Acet PHA 08/02/24 In Process 5/325mg Tab (Ancram 21:45 Ondansetron Hcl PHA 08/02/24 In Process (Zofran) 21:45 Sequential FLORI 08/02/24 In Process Compression Device Nitroglycerin PHA 08/02/24 In Process Sublingual (Ntrostat 21:45 Morphine Sulfate PHA 08/02/24 In Process Injection 21:45 Stat Ekg For Chest FLORI 08/02/24 In Process Pain 21:34 Notify Md Of Changes FLORI 08/02/24 In Process From Base 21:34 Leisure Studies Professor For FLORI 08/02/24 In Process 24 Hours 21:34 Emergency Dysrhythmia FLORI 08/02/24 In Process Protocol 21:34 Rhythm Strips Once FLORI 08/02/24 In Process Every Shift 21:34 Oxygen By Nasal RT 08/02/24 Transmitted Cannula 21:34 *Consult CONS 08/02/24 Transmitted / 21:34 Albuterol Medneb PHA 08/02/24 In Process (Ventolin Medneb) 22:00 Ipratropium Medneb PHA 08/02/24 In Process (Atrovent Medneb) 22:00 * Hematology/Oncology CONS 08/02/24 Transmitted Consult 21:34 * Peer Tutor CONS 08/02/24 Transmitted Consult Npo (Nothing By DIET 08/03/24 Transmitted Mouth) Diet Breakfast * Surgical Consult CONS 08/02/24 Transmitted * Gi Dvh Supervisor Of Instruction CONS 08/02/24 Transmitted 23:36 Morphine Sulfate PHA 08/03/24 In Process Injection 02:15 Piperacillin-Tazob PHA 08/03/24 Logged 3.375gm (Zosyn 3.375g 06:00 Date of Service: Aug 03, 2024 Billing Provider: JALYN SARGENT MD Common Visit Codes: NOT BILLABLE JALYN SARGENT MD 08/03/24 1137: Review of Systems Allergies: Coded Allergies: NO KNOWN ALLERGIES (Unverified , 09/01/22) Assessment/Plan Assessment/Plan Patient's chart is reviewed. Patient is seen and evaluated and discussed with the patient's along with the nurse at bedside with a Malagasy interpretation. Patient is seen evaluated and admitted by nurse practitioner this morning. I agree with his evaluation, documentation, assessment and care plan as outlined. Patient's is in the process of discussions with her oncologist regarding hospice. Therefore we will have social Service consultation for hospice while he is in the hospital. STEVE GARCIA NP Aug 03, 2024 03:39 JALYN SARGENT MD Aug 03, 2024 11:37
[2024-08-03 05:58] LABS: Basophils # (auto) 0.1 10 ^3/uL (0-0.2); Basophils % (auto) 0.7 % (0.0-2.0); Eosinophils # (auto) 0.1 10 ^3/uL (0-0.8); Eosinophils % (auto) 1.7 % (0.0-7.0); Hematocrit 39.8 % (41.0-53.0); Hemoglobin 13.3 g/dL (13.5-17.5); Lymphocytes # (auto) 1.5 10 ^3/uL (0.4-5.4); Lymphocytes % (auto) 16.4 % (10.0-50.0); Mean Corpuscular Hemoglobin 29.6 pg (28.0-32.0); Mean Corpuscular Hgb Conc. 33.4 g/dL (32.0-36.0); Mean Corpuscular Volume 88.6 fL (80.0-100.0); Monocytes # (auto) 1.2 10 ^3/uL (0-1.3); Neutrophils # (auto) 5.9 10 ^3/uL (1.6-8.6); Neutrophils % (auto) 67.2 % (37.0-80.0); Nucleated Red Blood Cells % 0.2 %; Platelet Count (auto) 286 10^3/uL (140-450); Red Blood Cells 4.49 10^6/uL (4.5-5.90); Red Cell Distribution Width 15.1 % (11.8-14.3); White Blood Cell 8.8 10^3/uL (4.4-10.8)
[2024-08-03 06:07] LABS: Anion Gap 7 (5-15); Carbon Dioxide 26 mmol/L (20-31); Chloride 100 mmol/L (98-107)
[2024-08-03 06:13] LABS: Glucose 93 mg/dL (74-106)
[2024-08-03 06:15] LABS: BUN/Creatinine Ratio 4.2 (10.0-20.0); Blood Urea Nitrogen < 5 mg/dL (9-23); Calcium 8.6 mg/dL (8.7-10.4); Sodium 133 mmol/L (136-145)
[2024-08-03] MEDS: PIPERACILLIN-TAZOB 3.375GM 100 ML IV SCH (06:35)
[2024-08-03] MEDS: LACTULOSE 20Gm/30ML SOLN PO SCH (12:11)
[2024-08-03] MEDS: GABAPENTIN 300 MG CAP PO SCH (14:00)
[2024-08-03] MEDS: DexAMETHasone SOD PHOS 4 MG/1ML SDV INJ IV SCH (14:20)
--- NOTE | 2024-08-03 14:32 | DVHINCON2 ---
Date of service: Aug 03, 2024 History of Present Illness 64-year-old male with metastatic lung cancer admitted secondary to abdominal pain. Patient has not had a bowel movement in two weeks. Denies any fevers, chills, nausea or vomiting. Reports more difficulty in breathing. Past Medical History Metastatic lung cancer Past Surgical History Hernia repair Family History: FH: genital cancer G8 FATHER High cholesterol G8 FATHER Family History Noncontributory Social History Currently denies alcohol, tobacco, IV drug use Allergies: Coded Allergies: NO KNOWN ALLERGIES (Unverified , 09/01/22) Home Meds Active Scripts Tamsulosin Hcl (Flomax) 0.4 Mg Cap, 1 CAP PO QPM, #30 CAP Prov:JALYN SARGENT MD 06/05/23 Albuterol Sulfate (Albuterol Sulfate Hfa) 108 Mcg/Act Aer, 108 MCG IN TID, #90 AER Prov:KENYA GARCES 09/01/22 Promethazine-Dm (Promethazine Dm 6.25-15 mg/5Ml) 1 Cyndi Cyndi, 5 ML PO TID, #150 ML Prov:KENYA GARCES 09/01/22 Reported Medications Tamsulosin Hcl (Tamsulosin Hcl) 0.4 Mg Cap, 1 CAP PO DAILY, #30 CAP 5 Refills 07/13/23 Rosuvastatin Calcium (Crestor) 10 Mg Tab, 1 TAB PO DAILY, #30 TAB 5 Refills 07/13/23 Morphine Sulfate (Morphine Sulfate) 30 Mg Tab, 1 TAB PO QID, #120 TAB 07/13/23 Rosuvastatin Calcium (Crestor) 10 Mg Tab, 1 TAB PO DAILY, #90 TAB 3 Refills 06/22/23 Current Medications Current Medications Medications (Trade) Dose Ordered Sig/Leia Route PRN Reason Start Time Stop Time Status Last Admin Docusate Sodium (Colace Capsule) 100 mg BIDPRN PRN PO FOR CONSTIPATION 08/02/24 21:45 Acetaminophen (Tylenol Tablet) 650 mg Q6HP PRN PO PAIN SCALE 1-3 OR TEMP>100.4 08/02/24 21:45 Acetaminophen/ Hydrocodone Bitart ([place] 5/325MG Tab) 1 tab Q4HP PRN PO MODERATE PAIN (4-6 PAIN SCALE) 08/02/24 21:45 Ondansetron HCl (Zofran) 4 mg Q4HP PRN IV NAUSEA / VOMITING 08/02/24 21:45 08/03/24 06:42 Morphine Sulfate 2 mg Q4HPRN PRN IV SEVERE PAIN (7-10 PAIN SCALE) 08/02/24 21:45 08/03/24 02:04 DC 08/03/24 00:27 Nitroglycerin (Ntrostat Sublingual) 0.4 mg Q5MINP PRN SL FOR CHEST PAIN 08/02/24 21:45 Morphine Sulfate 2 mg Q30M PRN IV FOR CHEST PAIN 08/02/24 21:45 Albuterol (Ventolin Medneb) 2.5 mg Q4HR NEB 08/02/24 22:00 08/03/24 10:00 Ipratropium [place] (Atrovent Medneb) 0.5 mg Q4HR NEB 08/02/24 22:00 08/03/24 10:00 Morphine Sulfate 4 mg Q4HPRN PRN IV SEVERE PAIN (7-10 PAIN SCALE) 08/03/24 02:15 08/03/24 10:55 Piperacillin Sod/ Tazobactam Sod 100 ml @ 25 mls/hr Q8HR IV 08/03/24 06:00 08/03/24 06:35 Lactulose 30 ml Q6HR PO 08/03/24 12:00 08/03/24 12:11 Gabapentin (Neurontin Capsule) 300 mg TID PO 08/03/24 14:00 Dexamethasone Sodium Phosphate (Decadron Injection) 4 mg Q8HR IV 08/03/24 14:00 Vital Signs Vital Signs Date Time Temp Pulse Resp B/P (MAP) Pulse Ox O2 Delivery O2 Flow Rate FiO2 08/03/24 13:35 101 42 117/64 (81) 96 08/03/24 10:00 Nasal Cannula* 2 28 08/02/24 19:56 98.0 98.0 Physical Exam GEN: Elderly tired-appearing male in no acute distress. Alert. HEENT: Normocephalic atraumatic. Moist mucous membranes. Anicteric sclerae. CV: RRR Respiratory: Coarse breath sounds ABD: Minimal right lower quadrant tenderness to palpation without guarding or rebound. Nondistended. CT of the chest, abdomen, pelvis: Volume loss of the left lung. Moderate left- sided empyema. Mediastinal lymphadenopathy. Left axillary problem and lymph nodes. Mild wall thickening of the stomach, duodenum and ascending colon. Mild ascites. Soft tissue density in the right mid abdomen which may represent a mesenteric mass. Multiple osseous lesions. Labs/Diagnostic Data Labs Test 08/03/24 05:04 08/02/24 22:50 08/02/24 17:05 08/02/24 13:18 Range/Units White Blood Count 8.8 # 4.4-10.8 10^3/uL Red Blood Count 4.49 L 4.5-5.90 10^6/uL Hemoglobin 13.3 L 13.5-17.5 g/dL Hematocrit 39.8 L 41.0-53.0 % Mean Corpuscular Volume 88.6 80.0-100.0 fL Mean Corpuscular Hemoglobin 29.6 28.0-32.0 pg Mean Corpuscular Hemoglobin Concent 33.4 32.0-36.0 g/dL Red Cell Distribution Width 15.1 H 11.8-14.3 % Platelet Count 286 140-450 10^3/uL Mean Platelet Volume 6.4 L 6.9-10.8 fL Neutrophils (%) (Auto) 67.2 37.0-80.0 % Lymphocytes (%) (Auto) 16.4 10.0-50.0 % Monocytes (%) (Auto) 14.0 H 0.0-12.0 % Eosinophils (%) (Auto) 1.7 0.0-7.0 % Basophils (%) (Auto) 0.7 0.0-2.0 % Neutrophils # (Auto) 5.9 1.6-8.6 10 ^3/uL Lymphocytes # (Auto) 1.5 0.4-5.4 10 ^3/uL Monocytes # (Auto) 1.2 0-1.3 10 ^3/uL Eosinophils # (Auto) 0.1 0-0.8 10 ^3/uL Basophils # (Auto) 0.1 0-0.2 10 ^3/uL Nucleated Red Blood Cells 0.2 % Sodium Level 133 L 136-145 mmol/L Potassium Level 4.0 3.5-5.1 mmol/L Chloride Level 100 98-107 mmol/L Carbon Dioxide Level 26 20-31 mmol/L Anion Gap 7 5-15 Blood Urea Nitrogen < 5 L 9-23 mg/dL Creatinine 1.19 0.700-1.30 mg/dL Glomerular Filtration Rate Calc 69 >90 mL/min BUN/Creatinine Ratio 4.2 L 10.0-20.0 Serum Glucose 93 74-106 mg/dL Calcium Level 8.6 L 8.7-10.4 mg/dL Urine Color Light-yellow Yellow Urine Clarity Clear Clear Urine pH 7.0 5.0-9.0 Urine Specific [place] 1.024 1.001-1.035 Urine Protein Negative Negative Urine Ketones 1+ H Negative Urine Blood Negative Negative /uL Urine Nitrite Negative Negative Urine Bilirubin Negative Negative Urine Urobilinogen Normal Negative mg/dL Urine Leukocyte Esterase Negative Negative /uL Urine RBC 1 0 - 3 /hpf Urine Microscopic WBC 1 0-3 /HPF Urine Squamous Epithelial Cells None seen <5 /hpf Urine Bacteria None seen None Seen /hpf Urine Glucose Normal Normal mg/dL Lactic Acid Level 0.9 0.4-2.0 mmol/L Prothrombin Time 11.6 9.3-11.8 sec Prothrombin Time INR 1.11 0.9-1.15 Activated Partial Thromboplast Time 26.1 24.5-34.5 SEC Total Bilirubin 0.7 0.2-1.0 mg/dL Aspartate Amino Transferase (AST) 24 13-40 U/L Alanine Aminotransferase (ALT) 17 7-40 U/L Alkaline Phosphatase 109 46-116 U/L Total Protein 7.6 5.7-8.2 g/dL Albumin 4.1 3.2-4.8 g/dL Lipase 45 12-53 U/L Assessment 1. Metastatic lung cancer with abdominal pain possibly from metastatic disease. Plan/Recommendation 1. We will start some bowel regimen. No indication for acute surgical intervention at this time. Plan discussed with: Patient VIKTORIA MENDOZA MD Aug 03, 2024 14:32
[2024-08-03] MEDS: FLEET ENEMA(ADULT) 135 ML PR ONE ×2 (14:45→20:00)
[2024-08-03] MEDS: DOCUSATE SOD 100 MG CAP PO PRN (22:14)
--- NOTE | 2024-08-03 23:07 | DVHPN2 ---
Progress Note - Dictate Date Seen: Aug 03, 2024 Medical Necessity Reason Pt with a Central, PICC or Fol: No Subjective Patient seen and examined at bedside. Remains on supplemental oxygen Overnight events reviewed. vital signs Vital Sign Date Time Temp Pulse Resp B/P (MAP) Pulse Ox O2 Delivery O2 Flow Rate FiO2 08/03/24 21:00 98.3 111 20 133/98 (110) 99 98.3 08/03/24 19:54 Nasal Cannula* 2 28 Total Intake and Output 08/02/24 08/02/24 08/03/24 15:00 23:00 07:00 Intake Total 1300 ml Balance 1300 ml medications Current Medications Medications Dose Ordered Sig/Leia Route Start Time Stop Time Status Last Admin Dose Admin Docusate Sodium 100 mg BIDPRN PRN PO 08/02/24 21:45 08/03/24 22:14 100 MG Acetaminophen 650 mg Q6HP PRN PO 08/02/24 21:45 Acetaminophen/ Hydrocodone Bitart 1 tab Q4HP PRN PO 08/02/24 21:45 Ondansetron HCl 4 mg Q4HP PRN IV 08/02/24 21:45 08/03/24 06:42 4 MG Nitroglycerin 0.4 mg Q5MINP PRN SL 08/02/24 21:45 Morphine Sulfate 2 mg Q30M PRN IV 08/02/24 21:45 Albuterol 2.5 mg Q4HR NEB 08/02/24 22:00 08/03/24 19:54 2.5 MG Ipratropium [place] 0.5 mg Q4HR NEB 08/02/24 22:00 08/03/24 19:54 0.5 MG Morphine Sulfate 4 mg Q4HPRN PRN IV 08/03/24 02:15 08/03/24 20:04 4 MG Piperacillin Sod/ Tazobactam Sod 100 ml @ 25 mls/hr Q8HR IV 08/03/24 06:00 08/03/24 22:14 25 MLS/HR Lactulose 30 ml Q6HR PO 08/03/24 12:00 08/03/24 18:08 30 ML Gabapentin 300 mg TID PO 08/03/24 14:00 08/03/24 22:14 300 MG Dexamethasone Sodium Phosphate 4 mg Q8HR IV 08/03/24 14:00 08/03/24 22:13 4 MG objective Gen.: Patient lying in bed in no apparent distress. On supplemental oxygen. Head: Normocephalic, atraumatic. Eyes: EOMI/PERRLA. Ears: Normal hearing. Normal anatomy. Neck/trachea: Trachea midline, supple. Nose: Normal external anatomy. Mouth: Moist mucous membranes. Chest: Decreased air entry bilaterally. No wheezing or rhonchi. Cardiovascular: Positive S1, positive S2. Regular rate and rhythm. Abdomen: Positive bowel sounds in all 4 quadrants. Soft, non-tender, non- distended. : Deferred. Rectal: Deferred. Skin: Warm, dry. Intact. Extremities: 2+ radial pulses bilaterally. No lower extremity edema. Neuro: Awake, alert, oriented x3. No gross motor or sensory deficits. Cranial nerves II through XII intact. Gait not assessed. laboratory and microbiology Laboratory Tests 08/03/24 05:04 Test 08/03/24 05:04 Range/Units Serum Glucose 93 74-106 mg/dL Assessment/Plan Impression: Acute hypoxic respiratory failure Dependence on supplemental oxygen Pleural effusion Atelectasis Small-bowel obstruction COPD Stage IV lung cancer Abdominal pain Events: Remains on supplemental oxygen, 2 LPM NC Taper O2 as tolerated Continue antibiotics Incentive spirometry Pain control Avoid oversedation No bowel movements - enema/lactulose Follow up chest ultrasound Plan for biopsy of colon by IR Surgery recs appreciated. Labs and imaging reviewed. Rest of plan as noted below. Plan: Supplemental oxygen Titrate to keep O2 sats above 92%. Taper O2 as tolerated. Continue bronchodilators. Continue antibiotics Incentive spirometry Monitor renal function. Monitor electrolytes. Supplement as necessary. Monitor ins and outs. DVT prophylaxis. Prognosis: Poor given patient's multiple co-morbidities. Rest of plan per hospitalist and other consultants. Thank you, DANA Boland, for allowing me to participate in this patient's care. Further recommendations will depend on the patient's clinical course. Please do not hesitate to contact me if you have any questions or concerns. This medical document was created using an electronic medical record system with [employer] system. Although these documentations are being carefully reviewed, there may still be some phonetic and typographical changes. The errors are purely typographical, due to imperfection on the software program, and do not reflect any compromise in the patient's medical care. Plan discussed with: Patient, Other (GLADYS Temple) BETO BIGGS MD Aug 03, 2024 23:07
[2024-08-04] VITALS (21 sets, daily range): BP systolic 132–148; BP diastolic 95–102; PULSE 95–119; RESP 16–22; TEMP 98.1–98.6; O2SAT 95–100
--- NOTE | 2024-08-04 02:10 | DVH ---
Chest Sonogram Date: 08/03/2024 11:50 AM Clinical history: FLUID CHECK Images submitted: 6 Findings: Limited sonographic evaluation of the right and left chest was performed to localize and janett fluid f or thoracentesis. No significant effusion. IMPRESSION: 1. No significant pleural effusion END IMPRESSION:
[2024-08-04 07:34] LABS: Anion Gap 7 (5-15); Carbon Dioxide 26 mmol/L (20-31); Chloride 102 mmol/L (98-107); Potassium 4.1 mmol/L (3.5-5.1)
--- NOTE | 2024-08-04 07:36 | DVHPN2 ---
Progress Note - Dictate Date Seen: Aug 04, 2024 Medical Necessity Reason Pt with a Central, PICC or Fol: No Subjective E: no major events o/n. denies abd pain. vital signs Vital Sign Date Time Temp Pulse Resp B/P (MAP) Pulse Ox O2 Delivery O2 Flow Rate FiO2 08/04/24 06:32 104 18 98 08/04/24 06:32 Nasal Cannula* 2 28 08/04/24 05:00 98.1 140/97 (111) 98.1 Total Intake and Output 08/03/24 08/03/24 08/04/24 15:00 23:00 07:00 Intake Total 100 ml 476 ml 100 ml Output Total 50 ml Balance 100 ml 476 ml 50 ml medications Current Medications Medications Dose Ordered Sig/Leia Route Start Time Stop Time Status Last Admin Dose Admin Docusate Sodium 100 mg BIDPRN PRN PO 08/02/24 21:45 08/03/24 22:14 100 MG Acetaminophen 650 mg Q6HP PRN PO 08/02/24 21:45 Acetaminophen/ Hydrocodone Bitart 1 tab Q4HP PRN PO 08/02/24 21:45 Ondansetron HCl 4 mg Q4HP PRN IV 08/02/24 21:45 08/03/24 06:42 4 MG Nitroglycerin 0.4 mg Q5MINP PRN SL 08/02/24 21:45 Morphine Sulfate 2 mg Q30M PRN IV 08/02/24 21:45 Albuterol 2.5 mg Q4HR NEB 08/02/24 22:00 08/04/24 06:22 2.5 MG Ipratropium [place] 0.5 mg Q4HR NEB 08/02/24 22:00 08/04/24 06:22 0.5 MG Morphine Sulfate 4 mg Q4HPRN PRN IV 08/03/24 02:15 08/04/24 03:43 4 MG Piperacillin Sod/ Tazobactam Sod 100 ml @ 25 mls/hr Q8HR IV 08/03/24 06:00 08/04/24 06:28 25 MLS/HR Lactulose 30 ml Q6HR PO 08/03/24 12:00 08/04/24 06:28 30 ML Gabapentin 300 mg TID PO 08/03/24 14:00 08/04/24 06:28 300 MG Dexamethasone Sodium Phosphate 4 mg Q8HR IV 08/03/24 14:00 08/04/24 06:28 4 MG objective GEN: NAD ABD: soft. NT/ND. laboratory and microbiology Test 08/04/24 05:56 Range/Units Serum Glucose Pending Assessment/Plan A: 1. Metastatic lung cancer with abdominal pain possibly from metastatic disease but w/o SBO P: 1. no acute indication for surgery. 2. clear liquid diet. Plan discussed with: Patient VIKTORIA MENDOZA MD Aug 04, 2024 07:36
[2024-08-04 07:40] LABS: BUN/Creatinine Ratio 8.4 (10.0-20.0); Blood Urea Nitrogen 10 mg/dL (9-23)
[2024-08-04 07:43] LABS: Calcium 8.7 mg/dL (8.7-10.4); Glucose 130 mg/dL (74-106); Sodium 135 mmol/L (136-145)
[2024-08-04 07:50] LABS: Basophils # (auto) 0 10 ^3/uL (0-0.2); Basophils % (auto) 0.1 % (0.0-2.0); Eosinophils # (auto) 0 10 ^3/uL (0-0.8); Hematocrit 37.9 % (41.0-53.0); Hemoglobin 12.9 g/dL (13.5-17.5); Lymphocytes # (auto) 0.6 10 ^3/uL (0.4-5.4); Lymphocytes % (auto) 11.4 % (10.0-50.0); Mean Corpuscular Hemoglobin 29.8 pg (28.0-32.0); Mean Corpuscular Volume 87.7 fL (80.0-100.0); Monocytes # (auto) 0.3 10 ^3/uL (0-1.3); Monocytes % (auto) 6.1 % (0.0-12.0); Neutrophils # (auto) 4.6 10 ^3/uL (1.6-8.6); Neutrophils % (auto) 82.4 % (37.0-80.0); Platelet Count (auto) 287 10^3/uL (140-450); Red Blood Cells 4.32 10^6/uL (4.5-5.90); Red Cell Distribution Width 15.1 % (11.8-14.3); White Blood Cell 5.6 10^3/uL (4.4-10.8)
--- NOTE | 2024-08-04 09:47 | DVHCONRES ---
Date Seen: Aug 04, 2024 Resident Creating Document: LUISANA LOCO History of Present Illness 64-year-old male patient with PMHx of metastatic lung cancer diagnosed in June 29, underwent CTX till April 2024, history of thyroiditis, who presented to the ER with a chief complaint of abdominal distention and constipation. Patient reports last bowel movement was 3 weeks ago. He says that he has not been passing gas. Associated features include low appetite and weight loss. He had a colonoscopy done in for screening purposes. Patient does not smoke or drink. 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 Patient seen and examined at the bedside. CT abdomen/pelvis completed which shows soft tissue density in right mid abdomen with mesenteric mass. Soft tissue density of right renal pelvis plus proximal ureter. Osseous lesion seen. Mild wall thickening of the stomach, duodenum, ascending colon. Myositis. Family History: FH: genital cancer G8 FATHER High cholesterol G8 FATHER Allergies: Coded Allergies: NO KNOWN ALLERGIES (Unverified , 09/01/22) Home Meds Active Scripts Gabapentin (Gabapentin) 400 Mg Cap, 400 MG PO TID, #30 CAP Prov:JALYN SARGENT MD 08/04/24 Famotidine (Pepcid AC) 20 Mg Tab, 20 MG PO DAILY, #30 TAB Prov:JALYN SARGENT MD 08/04/24 Ibuprofen (Ibuprofen) 600 Mg Tab, 1 TAB PO TID, #30 TAB Prov:JALYN SARGENT MD 08/04/24 Dexamethasone (Decadron) 4 Mg Tb, 4 TAB PO DAILY, #8 TAB Prov:JALYN SARGENT MD 08/04/24 Lactulose (Lactulose) 10 Gm/15 Ml Cyndi, 10 GM PO QID, #240 ML Prov:JALYN SARGENT MD 08/04/24 Tamsulosin Hcl (Flomax) 0.4 Mg Cap, 1 CAP PO QPM, #30 CAP Prov:JALYN SARGENT MD 06/05/23 Albuterol Sulfate (Albuterol Sulfate Hfa) 108 Mcg/Act Aer, 108 MCG IN TID, #90 AER Prov:KENYA GARCES 09/01/22 Promethazine-Dm (Promethazine Dm 6.25-15 mg/5Ml) 1 Cyndi Cyndi, 5 ML PO TID, #150 ML Prov:KENYA GARCES PA 09/01/22 Reported Medications Tamsulosin Hcl (Tamsulosin Hcl) 0.4 Mg Cap, 1 CAP PO DAILY, #30 CAP 5 Refills 07/13/23 Rosuvastatin Calcium (Crestor) 10 Mg Tab, 1 TAB PO DAILY, #30 TAB 5 Refills 07/13/23 Morphine Sulfate (Morphine Sulfate) 30 Mg Tab, 1 TAB PO QID, #120 TAB 07/13/23 Rosuvastatin Calcium (Crestor) 10 Mg Tab, 1 TAB PO DAILY, #90 TAB 3 Refills 06/22/23 Current Medications Current Medications Medications (Trade) Dose Ordered Sig/Leia Route PRN Reason Start Time Stop Time Status Last Admin Lactulose 30 ml Q6HR PO 08/03/24 12:00 08/04/24 06:28 Gabapentin (Neurontin Capsule) 300 mg TID PO 08/03/24 14:00 08/04/24 06:28 Dexamethasone Sodium Phosphate (Decadron Injection) 4 mg Q8HR IV 08/03/24 14:00 08/04/24 06:28 Vital Signs Vital Signs Date Time Temp Pulse Resp B/P (MAP) Pulse Ox O2 Delivery O2 Flow Rate FiO2 08/04/24 09:10 108 18 148/102 08/04/24 06:32 98 08/04/24 06:32 Nasal Cannula* 2 28 08/04/24 05:00 98.1 98.1 Physical Exam Patient lying in bed, in no acute distress General: thin looking, afebrile, palor, mucosae are moist Cardiovascular: Regular S1 and S2. No murmurs, gallops or rubs. No JVD elevation. No pedal edema Respiratory: Normal B/L air entry on room air. Clear lung sounds on auscultation Abdomen: Distended but nontender, hyperactive bowel sounds Genitourinary: Deferred MSK/skin: Mobilizes 4 limbs. Skin is dry and warm Neurological: No motor, no sensitive deficits, normal speech. Pupils are isocoric and reactive. Psych/Mental Status: A/Ox4 Labs/Diagnostic Data Labs Test 08/04/24 05:56 08/02/24 22:50 08/02/24 17:05 08/02/24 13:18 Range/Units White Blood Count 5.6 # 4.4-10.8 10^3/uL Red Blood Count 4.32 L 4.5-5.90 10^6/uL Hemoglobin 12.9 L 13.5-17.5 g/dL Hematocrit 37.9 L 41.0-53.0 % Mean Corpuscular Volume 87.7 80.0-100.0 fL Mean Corpuscular Hemoglobin 29.8 28.0-32.0 pg Mean Corpuscular Hemoglobin Concent 34.0 32.0-36.0 g/dL Red Cell Distribution Width 15.1 H 11.8-14.3 % Platelet Count 287 140-450 10^3/uL Mean Platelet Volume 6.7 L 6.9-10.8 fL Neutrophils (%) (Auto) 82.4 H 37.0-80.0 % Lymphocytes (%) (Auto) 11.4 10.0-50.0 % Monocytes (%) (Auto) 6.1 0.0-12.0 % Eosinophils (%) (Auto) 0.0 0.0-7.0 % Basophils (%) (Auto) 0.1 0.0-2.0 % Neutrophils # (Auto) 4.6 1.6-8.6 10 ^3/uL Lymphocytes # (Auto) 0.6 0.4-5.4 10 ^3/uL Monocytes # (Auto) 0.3 0-1.3 10 ^3/uL Eosinophils # (Auto) 0 0-0.8 10 ^3/uL Basophils # (Auto) 0 0-0.2 10 ^3/uL Nucleated Red Blood Cells 0.0 % Sodium Level 135 L 136-145 mmol/L Potassium Level 4.1 3.5-5.1 mmol/L Chloride Level 102 98-107 mmol/L Carbon Dioxide Level 26 20-31 mmol/L Anion Gap 7 5-15 Blood Urea Nitrogen 10 9-23 mg/dL Creatinine 1.19 0.700-1.30 mg/dL Glomerular Filtration Rate Calc 69 >90 mL/min BUN/Creatinine Ratio 8.4 L 10.0-20.0 Serum Glucose 130 H 74-106 mg/dL Calcium Level 8.7 8.7-10.4 mg/dL Urine Color Light-yellow Yellow Urine Clarity Clear Clear Urine pH 7.0 5.0-9.0 Urine Specific [place] 1.024 1.001-1.035 Urine Protein Negative Negative Urine Ketones 1+ H Negative Urine Blood Negative Negative /uL Urine Nitrite Negative Negative Urine Bilirubin Negative Negative Urine Urobilinogen Normal Negative mg/dL Urine Leukocyte Esterase Negative Negative /uL Urine RBC 1 0 - 3 /hpf Urine Microscopic WBC 1 0-3 /HPF Urine Squamous Epithelial Cells None seen <5 /hpf Urine Bacteria None seen None Seen /hpf Urine Glucose Normal Normal mg/dL Lactic Acid Level 0.9 0.4-2.0 mmol/L Prothrombin Time 11.6 9.3-11.8 sec Prothrombin Time INR 1.11 0.9-1.15 Activated Partial Thromboplast Time 26.1 24.5-34.5 SEC Total Bilirubin 0.7 0.2-1.0 mg/dL Aspartate Amino Transferase (AST) 24 13-40 U/L Alanine Aminotransferase (ALT) 17 7-40 U/L Alkaline Phosphatase 109 46-116 U/L Total Protein 7.6 5.7-8.2 g/dL Albumin 4.1 3.2-4.8 g/dL Lipase 45 12-53 U/L Microbiology Date/Time Source Procedure Growth Status 08/02/24 17:00 Blood Blood Culture - Preliminary NO GROWTH AFTER 24 HOURS OF INCUBATION. Resulted Assessment Metastatic left-sided lung cancer Probable Metastatic right midabdominal mesenteric mass Constipation likely due to above Metastatic osseous lesions History of thyroiditis Small ascites Pleural Effusion Plan: Follow up with a small bowel series Continue clear liquid diet Rectal exam completed, rectal tone intact, rectal vault is empty, no hemorrhoids were no stool. Continue lactulose q4 hourly scheduled Hospice in consideration Plan discussed with patient in which all questions have been answered Case discussed with Dr. Cruz Plan discussed with: Patient, Spouse (At the bedside) LUISANA LOCO RESIDENT Aug 04, 2024 09:47
[2024-08-04] MEDS: LACTULOSE 20Gm/30ML SOLN PO SCH (10:55)
[2024-08-04] MEDS ORDERED: DEX4T PO (14:27)
[2024-08-04] MEDS ORDERED: IBUP-1454 PO (14:27)
[2024-08-04] MEDS ORDERED: GABA-1251 PO (14:27)
[2024-08-04] MEDS ORDERED: FAMO-161 PO (14:27)
[2024-08-04] MEDS ORDERED: LACT10SO3 PO (14:27)
--- NOTE | 2024-08-04 14:29 | DVHDS2 ---
Discharge Summary Date of Admission Aug 02, 2024 at 21:34 Date of Discharge: Aug 04, 2024 Admitting Diagnosis Abdominal pain Labs/Diagnostic Data: Laboratory Results Test 08/04/24 05:56 08/02/24 22:50 08/02/24 17:05 08/02/24 13:18 White Blood Count 5.6 10^3/uL (4.4-10.8) Red Blood Count 4.32 10^6/uL (4.5-5.90) Hemoglobin 12.9 g/dL (13.5-17.5) Hematocrit 37.9 % (41.0-53.0) Mean Corpuscular Volume 87.7 fL (80.0-100.0) Mean Corpuscular Hemoglobin 29.8 pg (28.0-32.0) Mean Corpuscular Hemoglobin Concent 34.0 g/dL (32.0-36.0) Red Cell Distribution Width 15.1 % (11.8-14.3) Platelet Count 287 10^3/uL (140-450) Mean Platelet Volume 6.7 fL (6.9-10.8) Neutrophils (%) (Auto) 82.4 % (37.0-80.0) Lymphocytes (%) (Auto) 11.4 % (10.0-50.0) Monocytes (%) (Auto) 6.1 % (0.0-12.0) Eosinophils (%) (Auto) 0.0 % (0.0-7.0) Basophils (%) (Auto) 0.1 % (0.0-2.0) Neutrophils # (Auto) 4.6 10 ^3/uL (1.6-8.6) Lymphocytes # (Auto) 0.6 10 ^3/uL (0.4-5.4) Monocytes # (Auto) 0.3 10 ^3/uL (0-1.3) Eosinophils # (Auto) 0 10 ^3/uL (0-0.8) Basophils # (Auto) 0 10 ^3/uL (0-0.2) Nucleated Red Blood Cells 0.0 % Sodium Level 135 mmol/L (136-145) Potassium Level 4.1 mmol/L (3.5-5.1) Chloride Level 102 mmol/L (98-107) Carbon Dioxide Level 26 mmol/L (20-31) Anion Gap 7 (5-15) Blood Urea Nitrogen 10 mg/dL (9-23) Creatinine 1.19 mg/dL (0.700-1.30) Glomerular Filtration Rate Calc 69 mL/min (>90) BUN/Creatinine Ratio 8.4 (10.0-20.0) Serum Glucose 130 mg/dL (74-106) Calcium Level 8.7 mg/dL (8.7-10.4) Urine Color Light-yellow (Yellow) Urine Clarity Clear (Clear) Urine pH 7.0 (5.0-9.0) Urine Specific [place] 1.024 (1.001-1.035) Urine Protein Negative (Negative) Urine Ketones 1+ (Negative) Urine Blood Negative /uL (Negative) Urine Nitrite Negative (Negative) Urine Bilirubin Negative (Negative) Urine Urobilinogen Normal mg/dL (Negative) Urine Leukocyte Esterase Negative /uL (Negative) Urine RBC 1 /hpf (0 - 3) Urine Microscopic WBC 1 /HPF (0-3) Urine Squamous Epithelial Cells None seen /hpf (<5) Urine Bacteria None seen /hpf (None Seen) Urine Glucose Normal mg/dL (Normal) Lactic Acid Level 0.9 mmol/L (0.4-2.0) Prothrombin Time 11.6 sec (9.3-11.8) Prothrombin Time INR 1.11 (0.9-1.15) Activated Partial Thromboplast Time 26.1 SEC (24.5-34.5) Total Bilirubin 0.7 mg/dL (0.2-1.0) Aspartate Amino Transferase (AST) 24 U/L (13-40) Alanine Aminotransferase (ALT) 17 U/L (7-40) Alkaline Phosphatase 109 U/L (46-116) Total Protein 7.6 g/dL (5.7-8.2) Albumin 4.1 g/dL (3.2-4.8) Lipase 45 U/L (12-53) Other Laboratory Tests 08/04/24 05:56 Brief Hx & Hospital Course: 64-year-old male with medical history of metastatic lung Cancer presents With abdominal pain after being sent in by oncologist For concerns of small valve instruction. Patient states last time he had a bowel movement was three weeks ago.. Does take Whiteside On a regular basis. At this time patient denies any fevers, chills, Worsening shortness of breath, chest pain, palpitations, nausea, vomiting, hematemesis, hematochezia, melena. He is admitted and felt that his pain is secondary to advanced metastatic cancer to the abdomen with a significant constipation. Therefore multiple discussions done through jack strip assembler as well as the nurse along with the at bedside regarding his overall poor prognosis and wanted him to go home on hospice and pain management. However patient appears to be in denial of his advanced disease and wants to go home without hospice. While in the hospital patient treated with the pain medications. He had a small-bowel follow-through did not show any obstruction. Patient is having bowel movements. Therefore it is felt he could be safely discharged home. However I have advised the patient if he does change his mind regarding his quality of life with comfort care then to follow up with the hospice as recommended. Patient is aware that his cancer is advanced and apparently he is being followed outpatient by oncologist and received chemo treatment and refractory to therapy with metastatic disease. Per patient has oncologist also recommending palliative/L hospice services for pain management and comfort care. Operations or Procedures IMPRESSION: Volume loss of the left lung with pleural thickening in partial atelectasis of the left lobe. Underlying pneumonia/ mass can not be excluded. Moderate left-sided empyema. Mediastinal lymphadenopathy which may be neoplastic/reactive. Left axillary prominent lymph nodes which may be neoplastic. Mild wall thickening of the stomach and duodenum. Correlate for gastro duodenitis. Mild wall thickening of the ascending colon. Correlate for colitis /neoplasm. Mild ascites. Soft tissue density lesion within the right midabdomen which may be associated with the small bowel or may represent a mesenteric mass. Mild right hydronephrosis with soft tissue density of the right renal pelvis and proximal ureter. Correlate for possible mass. Multiple osseous lesions noted. Additional findings as above. ATED BY: REJI OWUSU DO DICTATED DATE/TIME: 08/02/24 1640 Condition at Discharge: Fair Final Diagnosis/Problems List Metastatic cancer to the abdomen, chronic abdominal pain due to cancer Problems List: (1) Lung cancer Status: Acute (2) Malignancy Status: Acute Discharge Disposition: Home Discharge Instruct/Medications Diet: Consistent carbohydrate, Cardiac 2g Na,low cholest Activity: No Restrictions, As Tolerated Follow Up/Referral: Primary care physician and oncologist in few weeks. Medications: as prescribed and per Hospice New Medications: Dexamethasone (Decadron) 4 Mg Tb 4 TAB PO DAILY, #8 TAB Famotidine (Pepcid AC) 20 Mg Tab 20 MG PO DAILY, #30 TAB Gabapentin (Gabapentin) 400 Mg Cap 400 MG PO TID, #30 CAP Ibuprofen (Ibuprofen) 600 Mg Tab 1 TAB PO TID, #30 TAB Lactulose (Lactulose) 10 Gm/15 Ml Cyndi 10 GM PO QID, #240 ML Continued Medications: Albuterol Sulfate (Albuterol Sulfate Hfa) 108 Mcg/Act Aer 108 MCG IN TID, #90 AER Morphine Sulfate (Morphine Sulfate) 30 Mg Tab 1 TAB PO QID, #120 TAB Promethazine-Dm (Promethazine Dm 6.25-15 mg/5Ml) 1 Cyndi Cyndi 5 ML PO TID, #150 ML Rosuvastatin Calcium (Crestor) 10 Mg Tab 1 TAB PO DAILY, #30 TAB 5 Refills Tamsulosin Hcl (Tamsulosin Hcl) 0.4 Mg Cap 1 CAP PO DAILY, #30 CAP 5 Refills Discontinued Medications: Rosuvastatin Calcium (Crestor) 10 Mg Tab 1 TAB PO DAILY, #90 TAB 3 Refills Tamsulosin Hcl (Flomax) 0.4 Mg Cap 1 CAP PO QPM, #30 CAP Discharge Statement: "Patient was advised to return to the ER or call 911 if any headaches, dizziness, shortness of breath, chest pain, abdominal pain, bleeding, fevers, or worsening of medical condition. Patient was counseled about treatment plan, medications, possible side effects, patientverbalized understanding. All questions were answered to the best of my ability. This discharge took greater then 30 minutes in planning, reviewing documentation, counseling the patient, and discussing with other team members." ASSESSMENT ASSESSMENT Assessment Metastatic cancer to the abdomen, chronic abdominal pain due to cancer JALYN SARGENT MD Aug 04, 2024 14:29
--- NOTE | 2024-08-04 17:47 | DVHPN2 ---
Progress Note - Dictate Date Seen: Aug 04, 2024 Medical Necessity Reason Pt with a Central, PICC or Fol: No Subjective Still complains of abdominal pain diffuse all over. Has not had a bowel movement. Evaluated by GI recommending small-bowel follow-through study. Meantime he is evaluated by hospice. His and his children no agree with hospice for quality of life with the adequate pain control given overall poor prognosis with a metastatic cancer to the abdomen. This is discussed with the patient along with the superintendent generating plant at bedside today as well. At present he wants to think about hospice and wants to discuss once again with the his before he goes home on hospice. Meantime continue pain management while in the hospital follow up with a small-bowel follow-through study and further clinical management per clinical course. Overall prognosis remains poor. Patient is aware of this. Discussed with the nurse regarding care plan. vital signs Vital Sign Date Time Temp Pulse Resp B/P (MAP) Pulse Ox O2 Delivery O2 Flow Rate FiO2 08/04/24 17:42 110 18 136/93 08/04/24 16:42 98.1 97 98.1 08/04/24 14:18 Nasal Cannula 2.0 08/04/24 14:18 28 Total Intake and Output 08/03/24 08/03/24 08/04/24 15:00 23:00 07:00 Intake Total 100 ml 476 ml 100 ml Output Total 50 ml Balance 100 ml 476 ml 50 ml medications Current Medications Medications Dose Ordered Sig/Leia Route Start Time Stop Time Status Last Admin Dose Admin Docusate Sodium 100 mg BIDPRN PRN PO 08/02/24 21:45 08/03/24 22:14 100 MG Acetaminophen 650 mg Q6HP PRN PO 08/02/24 21:45 Acetaminophen/ Hydrocodone Bitart 1 tab Q4HP PRN PO 08/02/24 21:45 Ondansetron HCl 4 mg Q4HP PRN IV 08/02/24 21:45 08/03/24 06:42 4 MG Nitroglycerin 0.4 mg Q5MINP PRN SL 08/02/24 21:45 Morphine Sulfate 2 mg Q30M PRN IV 08/02/24 21:45 Albuterol 2.5 mg Q4HR NEB 08/02/24 22:00 08/04/24 14:09 2.5 MG Ipratropium [place] 0.5 mg Q4HR NEB 08/02/24 22:00 08/04/24 14:09 0.5 MG Morphine Sulfate 4 mg Q4HPRN PRN IV 08/03/24 02:15 08/04/24 17:42 4 MG Piperacillin Sod/ Tazobactam Sod 100 ml @ 25 mls/hr Q8HR IV 08/03/24 06:00 08/04/24 13:32 25 MLS/HR Gabapentin 300 mg TID PO 08/03/24 14:00 08/04/24 13:32 300 MG Dexamethasone Sodium Phosphate 4 mg Q8HR IV 08/03/24 14:00 08/04/24 13:32 4 MG Lactulose 30 ml Q4HR PO 08/04/24 10:00 08/04/24 13:32 30 ML laboratory and microbiology Laboratory Tests 08/04/24 05:56 Test 08/04/24 05:56 Range/Units Serum Glucose 130 H 74-106 mg/dL Assessment/Plan Abdominal pain due to metastatic cancer to the abdomen/peritoneum. Severe constipation Small-bowel follow-through study for GI recommendations today. Continue current pain regimen. Further clinical management per clinical course and patient's sedation after he once again discussed this with his regarding hospice. Problems(with codes): (1) Lung cancer (2) Pleural effusion (3) Empyema (4) Constipation (5) Acute respiratory distress (6) Recurrent left pleural effusion (7) Malignancy Plan discussed with: Patient, Other JALYN SARGENT MD Aug 04, 2024 17:47
--- NOTE | 2024-08-04 23:48 | DVHPN2 ---
Progress Note - Dictate Date Seen: Aug 04, 2024 Medical Necessity Reason Pt with a Central, PICC or Fol: No Subjective Patient seen and examined at bedside. Remains on supplemental oxygen Overnight events reviewed. vital signs Vital Sign Date Time Temp Pulse Resp B/P (MAP) Pulse Ox O2 Delivery O2 Flow Rate FiO2 08/04/24 22:50 119 16 98 08/04/24 22:44 Nasal Cannula* 2 28 08/04/24 22:12 142/98 08/04/24 16:42 98.1 98.1 Total Intake and Output 08/03/24 08/03/24 08/04/24 15:00 23:00 07:00 Intake Total 100 ml 476 ml 100 ml Output Total 50 ml Balance 100 ml 476 ml 50 ml medications Current Medications Medications Dose Ordered Sig/Leia Route Start Time Stop Time Status Last Admin Dose Admin Docusate Sodium 100 mg BIDPRN PRN PO 08/02/24 21:45 08/03/24 22:14 100 MG Acetaminophen 650 mg Q6HP PRN PO 08/02/24 21:45 Acetaminophen/ Hydrocodone Bitart 1 tab Q4HP PRN PO 08/02/24 21:45 Ondansetron HCl 4 mg Q4HP PRN IV 08/02/24 21:45 08/03/24 06:42 4 MG Nitroglycerin 0.4 mg Q5MINP PRN SL 08/02/24 21:45 Morphine Sulfate 2 mg Q30M PRN IV 08/02/24 21:45 Albuterol 2.5 mg Q4HR NEB 08/02/24 22:00 08/04/24 22:44 2.5 MG Ipratropium [place] 0.5 mg Q4HR NEB 08/02/24 22:00 08/04/24 22:44 0.5 MG Morphine Sulfate 4 mg Q4HPRN PRN IV 08/03/24 02:15 08/04/24 22:12 4 MG Piperacillin Sod/ Tazobactam Sod 100 ml @ 25 mls/hr Q8HR IV 08/03/24 06:00 08/04/24 21:20 25 MLS/HR Gabapentin 300 mg TID PO 08/03/24 14:00 08/04/24 21:15 300 MG Dexamethasone Sodium Phosphate 4 mg Q8HR IV 08/03/24 14:00 08/04/24 21:20 4 MG Lactulose 30 ml Q4HR PO 08/04/24 10:00 08/04/24 21:14 30 ML objective Gen.: Patient lying in bed in no apparent distress. On supplemental oxygen. Head: Normocephalic, atraumatic. Eyes: EOMI/PERRLA. Ears: Normal hearing. Normal anatomy. Neck/trachea: Trachea midline, supple. Nose: Normal external anatomy. Mouth: Moist mucous membranes. Chest: Decreased air entry bilaterally. No wheezing or rhonchi. Cardiovascular: Positive S1, positive S2. Regular rate and rhythm. Abdomen: Positive bowel sounds in all 4 quadrants. Soft, non-tender, non- distended. : Deferred. Rectal: Deferred. Skin: Warm, dry. Intact. Extremities: 2+ radial pulses bilaterally. No lower extremity edema. Neuro: Awake, alert, oriented x3. No gross motor or sensory deficits. Cranial nerves II through XII intact. Gait not assessed. laboratory and microbiology Laboratory Tests 08/04/24 05:56 Test 08/04/24 05:56 Range/Units Serum Glucose 130 H 74-106 mg/dL Assessment/Plan Impression: Acute hypoxic respiratory failure Dependence on supplemental oxygen Pleural effusion Atelectasis Small-bowel obstruction COPD Stage IV lung cancer Abdominal pain Events: Remains on supplemental oxygen, 2 LPM NC Taper O2 as tolerated Continue antibiotics Incentive spirometry Pain control Avoid oversedation No bowel movements - enema/lactulose Chest ultrasound revealed no significant pleural effusion Plan for biopsy of colon by IR Surgery recs appreciated. Maintain euvolemia Monitor renal function Poor prognosis Hospice evaluation Labs and imaging reviewed. Rest of plan as noted below. Plan: Supplemental oxygen Titrate to keep O2 sats above 92%. Taper O2 as tolerated. Continue bronchodilators. Continue antibiotics Incentive spirometry Monitor renal function. Monitor electrolytes. Supplement as necessary. Monitor ins and outs. DVT prophylaxis. Prognosis: Poor given patient's multiple co-morbidities. Rest of plan per hospitalist and other consultants. Thank you, DANA Boland, for allowing me to participate in this patient's care. Further recommendations will depend on the patient's clinical course. Please do not hesitate to contact me if you have any questions or concerns. This medical document was created using an electronic medical record system with [employer] dictation system. Although these documentations are being carefully reviewed, there may still be some phonetic and typographical changes. The errors are purely typographical, due to imperfection on the software program, and do not reflect any compromise in the patient's medical care. Plan discussed with: Patient, Other (RN) BETO BIGGS MD Aug 04, 2024 23:48
[2024-08-05] VITALS (19 sets, daily range): BP systolic 113–150; BP diastolic 91–110; PULSE 100–124; RESP 16–26; TEMP 97.9–98.6; O2SAT 92–100
[2024-08-05 07:21] LABS: Basophils # (auto) 0 10 ^3/uL (0-0.2); Eosinophils # (auto) 0 10 ^3/uL (0-0.8); Lymphocytes # (auto) 0.6 10 ^3/uL (0.4-5.4); Lymphocytes % (auto) 5.5 % (10.0-50.0); Mean Corpuscular Hemoglobin 29.5 pg (28.0-32.0); Mean Corpuscular Hgb Conc. 33.4 g/dL (32.0-36.0); Mean Corpuscular Volume 88.4 fL (80.0-100.0); Monocytes # (auto) 1.1 10 ^3/uL (0-1.3); Monocytes % (auto) 9.3 % (0.0-12.0); Neutrophils # (auto) 9.7 10 ^3/uL (1.6-8.6); Neutrophils % (auto) 85.2 % (37.0-80.0); Platelet Count (auto) 238 10^3/uL (140-450); Red Blood Cells 4.07 10^6/uL (4.5-5.90); Red Cell Distribution Width 15.4 % (11.8-14.3); White Blood Cell 11.4 10^3/uL (4.4-10.8)
[2024-08-05 07:45] LABS: Chloride 102 mmol/L (98-107); Potassium 3.7 mmol/L (3.5-5.1)
[2024-08-05 07:47] LABS: Anion Gap 8 (5-15); Carbon Dioxide 26 mmol/L (20-31)
[2024-08-05 07:52] LABS: BUN/Creatinine Ratio 9.2 (10.0-20.0); Blood Urea Nitrogen 12 mg/dL (9-23)
[2024-08-05 07:53] LABS: Glucose 134 mg/dL (74-106); Sodium 136 mmol/L (136-145)
[2024-08-05] MEDS ORDERED: GASTROGRAFIN 120 ML SOL ONE (08:24)
--- NOTE | 2024-08-05 13:31 | DVH ---
Procedure: XY SMALL BOWEL SERIES-W GASTROGRA Reason for study/Clinical History: CONSTIPATION, hyperactive bowel sounds Comparison Study: None available at time of dictation. Technique: Single contrast small bowel series performed. FINDINGS/IMPRESSION: Initial talent scout view of the abdomen and pelvis appears demonstrates nonspecific bowel-gas pattern. Contrast is identified within the colon by 3 hours. This represents a Mild delay in small bowel parikh sit time. No evidence of obstruction identified.
--- NOTE | 2024-08-05 18:15 | DVHPN2 ---
Progress Note Date Seen: Aug 05, 2024 Resident Creating Document: LUISANA LOCO RESIDENT Medical Necessity Reason Pt with a Central, PICC or Fol: No Subjective Review of Systems 64-year-old male patient with PMHx of metastatic lung cancer diagnosed in June 29, underwent CTX till April 2024, history of thyroiditis, who presented to the ER with a chief complaint of abdominal distention and constipation. Patient reports last bowel movement was 3 weeks ago. He says that he has not been passing gas. Associated features include low appetite and weight loss. He had a colonoscopy done in for screening purposes. Patient does not smoke or drink. 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 Patient seen and examined at the bedside. Patient is passing gas and had soft watery bowel movements. Small-bowel series shows nonspecific bowel gas pattern. No Evidence of obstruction. Objective vital signs Vital Sign Date Time Temp Pulse Resp B/P (MAP) Pulse Ox O2 Delivery O2 Flow Rate FiO2 08/05/24 17:48 109 16 145/95 08/05/24 17:30 97.9 98 08/05/24 14:18 Nasal Cannula* 2 28 Total Intake and Output 08/04/24 08/04/24 08/05/24 15:00 23:00 07:00 Intake Total 800 ml 400 ml Output Total 150 ml Balance 800 ml 250 ml medications Current Medications Medications Dose Ordered Sig/Leia Route Start Time Stop Time Status Last Admin Dose Admin Docusate Sodium 100 mg BIDPRN PRN PO 08/02/24 21:45 08/03/24 22:14 100 MG Acetaminophen 650 mg Q6HP PRN PO 08/02/24 21:45 Acetaminophen/ Hydrocodone Bitart 1 tab Q4HP PRN PO 08/02/24 21:45 Ondansetron HCl 4 mg Q4HP PRN IV 08/02/24 21:45 08/03/24 06:42 4 MG Nitroglycerin 0.4 mg Q5MINP PRN SL 08/02/24 21:45 Morphine Sulfate 2 mg Q30M PRN IV 08/02/24 21:45 Albuterol 2.5 mg Q4HR NEB 08/02/24 22:00 08/05/24 14:18 2.5 MG Ipratropium [place] 0.5 mg Q4HR NEB 08/02/24 22:00 08/05/24 14:18 0.5 MG Morphine Sulfate 4 mg Q4HPRN PRN IV 08/03/24 02:15 08/05/24 17:48 4 MG Piperacillin Sod/ Tazobactam Sod 100 ml @ 25 mls/hr Q8HR IV 08/03/24 06:00 08/05/24 14:28 25 MLS/HR Gabapentin 300 mg TID PO 08/03/24 14:00 08/05/24 14:29 300 MG Dexamethasone Sodium Phosphate 4 mg Q8HR IV 08/03/24 14:00 08/05/24 14:28 4 MG Lactulose 30 ml Q4HR PO 08/04/24 10:00 08/05/24 14:29 30 ML Examination Patient lying in bed, in no acute distress General: thin looking, afebrile, palor, mucosae are moist Cardiovascular: Regular S1 and S2. No murmurs, gallops or rubs. No JVD elevation. No pedal edema Respiratory: Normal B/L air entry on room air. Clear lung sounds on auscultation Abdomen: Distended but nontender, hyperactive bowel sounds Genitourinary: Deferred MSK/skin: Mobilizes 4 limbs. Skin is dry and warm Neurological: No motor, no sensitive deficits, normal speech. Pupils are isocoric and reactive. Psych/Mental Status: A/Ox4 laboratory and microbiology Laboratory Tests 08/05/24 06:39 Test 08/05/24 06:39 Range/Units Serum Glucose 134 H 74-106 mg/dL Microbiology Date/Time Source Procedure Growth Status 08/02/24 17:00 Blood Blood Culture - Preliminary NO GROWTH AFTER 72 HOURS OF INCUBATION. 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 Small-bowel series shows nonspecific bowel gas pattern. No Evidence of obstruction. Increase to full liquid diet Rectal exam completed, rectal tone intact, rectal vault is empty, no hemorrhoids were no stool. Continue lactulose q4 hourly scheduled Hospice in consideration Prognosis guarded Plan discussed with patient in which all questions have been answered Case discussed with Dr. Cruz Plan discussed with: Patient My Orders My Orders Orders - LUISANA LOCO Procedure Category Date Status Time Small Bowel Series-W XY 08/05/24 Resulted Gastrogra 08:20 LUISANA LOCO Aug 05, 2024 18:15
--- NOTE | 2024-08-05 23:31 | DVHPN2 ---
Progress Note - Dictate Date Seen: Aug 05, 2024 Medical Necessity Reason Pt with a Central, PICC or Fol: No Subjective Patient seen and examined at bedside. Remains on supplemental oxygen Overnight events reviewed. vital signs Vital Sign Date Time Temp Pulse Resp B/P (MAP) Pulse Ox O2 Delivery O2 Flow Rate FiO2 08/05/24 17:48 109 16 145/95 08/05/24 17:30 97.9 98 08/05/24 14:18 Nasal Cannula* 2 28 Total Intake and Output 08/04/24 08/04/24 08/05/24 15:00 23:00 07:00 Intake Total 800 ml 400 ml Output Total 150 ml Balance 800 ml 250 ml objective Gen.: Patient lying in bed in no apparent distress. On supplemental oxygen. Head: Normocephalic, atraumatic. Eyes: EOMI/PERRLA. Ears: Normal hearing. Normal anatomy. Neck/trachea: Trachea midline, supple. Nose: Normal external anatomy. Mouth: Moist mucous membranes. Chest: Decreased air entry bilaterally. No wheezing or rhonchi. Cardiovascular: Positive S1, positive S2. Regular rate and rhythm. Abdomen: Positive bowel sounds in all 4 quadrants. Soft, non-tender, non- distended. : Deferred. Rectal: Deferred. Skin: Warm, dry. Intact. Extremities: 2+ radial pulses bilaterally. No lower extremity edema. Neuro: Awake, alert, oriented x3. No gross motor or sensory deficits. Cranial nerves II through XII intact. Gait not assessed. laboratory and microbiology Laboratory Tests 08/05/24 06:39 Test 08/05/24 06:39 Range/Units Serum Glucose 134 H 74-106 mg/dL Assessment/Plan Impression: Acute hypoxic respiratory failure Dependence on supplemental oxygen Pleural effusion Atelectasis Small-bowel obstruction COPD Stage IV lung cancer Abdominal pain Events: Remains on supplemental oxygen, 2 LPM NC Taper O2 as tolerated Continue antibiotics Incentive spirometry Pain control Avoid oversedation No bowel movements - enema/lactulose Small bowel series revealed no evidence of bowel obstruction. Plan for biopsy of colon by IR Surgery recs appreciated. Supportive care Poor prognosis Disposition to hospice. Labs and imaging reviewed. Rest of plan as noted below. Plan: Supplemental oxygen Titrate to keep O2 sats above 92%. Taper O2 as tolerated. Continue bronchodilators. Continue antibiotics Incentive spirometry Monitor renal function. Monitor electrolytes. Supplement as necessary. Monitor ins and outs. DVT prophylaxis. Prognosis: Poor given patient's multiple co-morbidities. Rest of plan per hospitalist and other consultants. Thank you, DANA Boland, for allowing me to participate in this patient's care. Further recommendations will depend on the patient's clinical course. Please do not hesitate to contact me if you have any questions or concerns. This medical document was created using an electronic medical record system with [employer] dictation system. Although these documentations are being carefully reviewed, there may still be some phonetic and typographical changes. The errors are purely typographical, due to imperfection on the software program, and do not reflect any compromise in the patient's medical care. Plan discussed with: Patient, Other (RN) BETO BIGGS MD Aug 05, 2024 23:31
== END 2024-08-05 18:05 | disposition home or self-care (01) | DRG 240 ==
LOC: ER 12:15 → TELE 21:34 → WEST WING 08-03 14:32
PROVIDERS: ADMIT Nurse Practitioner Family; ATTEND Nurse Practitioner Family
DX: C78.6 Secondary malignant neoplasm of retroperitoneum and peritoneum (principal); R18.8 Other ascites; C34.92 Malignant neoplasm of unspecified part of left bronchus or lung; N13.30 Unspecified hydronephrosis; Z99.81 Dependence on supplemental oxygen; J44.9 Chronic obstructive pulmonary disease, unspecified; G89.3 Neoplasm related pain (acute) (chronic); J98.11 Atelectasis; Z60.3 Acculturation difficulty; Z85.118 Personal history of other malignant neoplasm of bronchus and lung; Z79.899 Other long term (current) drug therapy
CPT/HCPCS: 36415; 71260; 74177; 74250; 76604; 80048; 80053; 81001; 83605; 83690; 85025; 85610; 85730; 87040; 93005; 94640; 99291; G0378; J1100; J2405; J2543